=== PATIENT | male | born 1970 | race Caucasian/White ===

== ENCOUNTER 2019-12-09 02:49 | Inpatient (IN) | payer MEDICAID ==
[~2019-12-09] VITALS: Ht 154.9 cm; Wt 47.6 kg
[2019-12-09] VITALS (7 sets, daily range): BP systolic 119–164; BP diastolic 47–70
--- NOTE | 2019-12-09 02:50 | NUR ---
BIBEMS FROM SNF C/O LOW O2 SAT 94% ON 5L/NC PER EMS REPORT SINCE 2229. O2 SAT 90% ON RA DURING INITIAL ASSESSMENT; PT TO BED 8, PT ON O2 5L 94-96%. GOWNED, PENDING ER PROVIDER JULIETH
[2019-12-09] MEDS ORDERED: CEFTRIAXONE 1GM BAG (ER ONLY) 50 ML IV ONE ×2 (03:30→03:38)
[2019-12-09 03:37] LABS: BASOPHILS # (AUTO) 0.2 /CMM (0.0-0.2); BASOPHILS % (AUTO) 1.2 % (0.0-2.0); EOSINOPHILS % (AUTO) 0.8 % (0.0-6.0); HEMATOCRIT 26 % (39-51); HEMOGLOBIN 7.6 g/dL (13.5-17.5); LYMPHOCYTES # (AUTO) 2.7 /CMM (0.8-4.8); LYMPHOCYTES % (AUTO) 17.8 % (20.0-44.0); MEAN CORPUSCULAR HGB CONC 30 g/dl (31.0-36.0); MEAN CORPUSCULAR VOLUME 90 fL (80-96); MONOCYTES # (AUTO) 0.6 /CMM (0.1-1.30); MONOCYTES % (AUTO) 3.6 % (2.0-12.0); NEUTROPHILS # (AUTO) 11.8 /CMM (1.8-8.9); NEUTROPHILS % (AUTO) 76.6 % (43.0-81.0); PLATELET COUNT (AUTO) 824 /CMM (150-450); RED BLOOD CELL COUNT(AUTO) 2.85 MIL/uL (4.5-6.0); WHITE BLOOD COUNT (AUTO) 15.3 K/uL (4.3-11.0)
[2019-12-09 03:39] LABS: CALCIUM, SERUM 8.9 mg/dL (8.5-10.1); CARBON DIOXIDE 17 mmol/L (21-32); CHLORIDE 99 mmol/L (98-107); CREATININE 6.6 mg/dL (0.6-1.3); GLUCOSE 80 mg/dL (74-106); SODIUM SERUM 137 mmol/L (136-145)
[2019-12-09 03:41] LABS: POTASSIUM 7.1 mmol/L (3.5-5.1); UREA NITROGEN, BLOOD 90 mg/dL (7-18)
[2019-12-09 03:49] LABS: D-DIMER 4.12 mg/L(FEU (0.17-0.50)
[2019-12-09] MEDS ORDERED: SODIUM POLYSTYRENE SULFONATE 15 G/60 ML BOTTLE ONE (03:54)
[2019-12-09 03:55] LABS: BILIRUBIN,TOTAL 1.1 mg/dL (0.2-1.0)
[2019-12-09] MEDS ORDERED: DEXTROSE 50%-WATER 50 ML DISP.SYRIN ONE (03:55)
[2019-12-09] MEDS ORDERED: SODIUM BICARBONATE SYR 50 MEQ/50 ML DISP.SYRIN ONE ×2 (03:55→04:29)
[2019-12-09 03:56] LABS: ALKALINE PHOSPHATASE 919 U/L (46-116); ASPARTATE AMINOTRANSFERASE 19 U/L (15-37); BILIRUBIN,DIRECT 0.5 mg/dL (0.0-0.2)
[2019-12-09] MEDS ORDERED: INSULIN REGULAR, HUMAN 100 UNIT/ML 10 ML VIAL ONE (03:56)
[2019-12-09 03:57] LABS: ALANINE AMINOTRANSFERASE 22 U/L (12-78); ALBUMIN 2.7 g/dL (3.4-5.0); B-TYPE NATRIURETIC PEPTIDE 407765 PG/ML (0-125)
[2019-12-09] MEDS ORDERED: INSULIN REGULAR, HUMAN 100 UNIT/ML 10 ML VIAL IV ONE (04:00)
[2019-12-09] MEDS ORDERED: SODIUM POLYSTYRENE SULFONATE 15 G/60 ML BOTTLE PO ONE (04:00)
[2019-12-09] MEDS ORDERED: SODIUM BICARBONATE SYR 100 MEQ in IV D5W 1,000 ML IV ONE (04:00)
[2019-12-09] MEDS ORDERED: DEXTROSE 50%-WATER 50 ML DISP.SYRIN IV ONE (04:00)
--- NOTE | 2019-12-09 04:09 | NUR ---
PER DR DAIGLE; GIVE SODIUM BICARB IVP; NOT DRIP.
[2019-12-09 04:15] LABS: CREATINE KINASE, TOTAL 80 U/L (39-308); FERRITIN 3582 ng/mL (8-388)
--- NOTE | 2019-12-09 04:25 | NUR ---
Dr Stuart paged per Dr Dai.
[2019-12-09 04:28] LABS: C-REACTIVE PROTEIN 26.6 mg/dL (0.0-0.9)
[2019-12-09] MEDS ORDERED: LEVOFLOXACIN 500 MG /D5W 100ML 500 MG/100 ML PIGGYBACK IV ONE (04:30)
[2019-12-09] MEDS ORDERED: LEVOFLOXACIN 500 MG /D5W 100ML 100 ML IV ONE (04:32)
--- NOTE | 2019-12-09 05:20 | NUR ---
[facility] PAGED
[2019-12-09] MEDS ORDERED: ALBUTEROL SULFATE 8 GM HFA.AER.AD IH PRN (05:30)
[2019-12-09] MEDS ORDERED: ONDANSETRON HCL/PF 4 MG/2 ML VIAL IVP PRN (05:30)
--- NOTE | 2019-12-09 07:15 | NUR ---
report given to jennifer calloway for adriana
--- NOTE | 2019-12-09 08:10 | NUR ---
REPORT GIVEN TO ZULAY PINO FOR DENICE.
--- NOTE | 2019-12-09 09:08 | NUR ---
patient transferred to ICU via acls protocol. No distress noted. Patient had a bowel movement, pericare provided. Endorsed to Viktoria PINO.
--- NOTE | 2019-12-09 09:10 | NUR ---
CONSENT FOR HD IN CHART
[2019-12-09 09:27] LABS: BASOPHILS # (AUTO) 0.1 /CMM (0.0-0.2); BASOPHILS % (AUTO) 0.9 % (0.0-2.0); EOSINOPHILS % (AUTO) 0.8 % (0.0-6.0); HEMATOCRIT 23 % (39-51); HEMOGLOBIN 7.1 g/dL (13.5-17.5); LYMPHOCYTES # (AUTO) 1.1 /CMM (0.8-4.8); LYMPHOCYTES % (AUTO) 8.4 % (20.0-44.0); MEAN CORPUSCULAR HGB CONC 30 g/dl (31.0-36.0); MEAN CORPUSCULAR VOLUME 87 fL (80-96); MONOCYTES # (AUTO) 0.7 /CMM (0.1-1.30); MONOCYTES % (AUTO) 4.9 % (2.0-12.0); NEUTROPHILS # (AUTO) 11.6 /CMM (1.8-8.9); PLATELET COUNT (AUTO) 775 /CMM (150-450); RED BLOOD CELL COUNT(AUTO) 2.69 MIL/uL (4.5-6.0); WHITE BLOOD COUNT (AUTO) 13.6 K/uL (4.3-11.0)
[2019-12-09] MEDS ORDERED: FERR325T28 PO (09:39)
[2019-12-09] MEDS ORDERED: PANT40TA49 PO (09:39)
[2019-12-09] MEDS ORDERED: INSU100V39 SQ (09:39)
[2019-12-09] MEDS ORDERED: HYDR100T27 PO (09:39)
[2019-12-09] MEDS ORDERED: GLIP5TAB13 PO (09:39)
[2019-12-09] MEDS ORDERED: ATOR40TA PO (09:39)
[2019-12-09] MEDS ORDERED: CLON0.1T PO (09:39)
[2019-12-09] MEDS ORDERED: AMLO-213 PO (09:39)
[2019-12-09] MEDS ORDERED: LABE200T5 PO (09:39)
[2019-12-09] MEDS ORDERED: CALC500T13 PO (09:39)
[2019-12-09] MEDS ORDERED: MAGN400O6 PO (09:39)
[2019-12-09] MEDS ORDERED: ASCO500C17 PO (09:39)
[2019-12-09] MEDS ORDERED: BISA10SU11 RC (09:39)
[2019-12-09] MEDS ORDERED: ACET325T53 PO (09:39)
[2019-12-09] MEDS ORDERED: NA P133E RC (09:39)
[2019-12-09] MEDS ORDERED: VIT1TABL44 PO (09:39)
[2019-12-09] MEDS: DOXYCYCLINE HYCLATE (100 MG) 100 MG TABLET PO SCH ×2 (09:59→17:19)
[2019-12-09] MEDS: HEPARIN SODIUM, PORCINE 5000 UNITS/1 ML VIAL SQ SCH ×2 (10:00→20:47)
[2019-12-09] MEDS: CEFEPIME 1 GM in IV D5W 50 ML IV SCH (10:00)
--- NOTE | 2019-12-09 10:00 | NUR ---
DIESEL MECHANIC APPRENTICE NOTE: RECEIVED PATIENT FROM ER AT 0855. PATIENT IS AAOX3, RESPONDS APPROPRIATELY. NO SIGNS OF ACUTE DISTRESS NOTED AT THIS TIME. SATING WELL ON 4L/MIN VIA NC. #18 ON LFA, C/D/I, FLUSHES WELL, NO SIGNS OF COMPLICATIONS NOTED, RCW HD CATH C/D/I. PATIENT IS CURRENTLY GETTING DIALYZED. WOUND PICTURES TAKEN AND PLACED IN CHART. SAFETY MEASURES IMPLEMENTED, BED IN LOWEST POSITION, LOCKED, SIDE RAILS UP, CALL LIGHT WITHIN REACH. WILL CONTINUE TO MONITOR PATIENT FOR CHANGES.
[2019-12-09 10:17] LABS: CALCIUM, SERUM 8.6 mg/dL (8.5-10.1); CREATININE 6.6 mg/dL (0.6-1.3); POTASSIUM 5.5 mmol/L (3.5-5.1)
[2019-12-09 10:28] LABS: ALBUMIN 2.3 g/dL (3.4-5.0); MAGNESIUM 2.6 mg/dL (1.8-2.4); PHOSPHORUS 7.3 mg/dL (2.5-4.9); TOTAL PROTEIN, SERUM 8.1 g/dL (6.4-8.2)
--- NOTE | 2019-12-09 11:00 | NUR ---
DIALYSIS COMPLETE, 2L REMOVED
--- NOTE | 2019-12-09 12:05 | NUR ---
SENIOR CYBER SECURITY ANALYST NOTES RECEIVED PATIENT FROM ICU , REPORT GIVEN BY RENETTA RN. PATIENT ALERT ORIENTED X 4. NO ACUTE DISTRESS NOTED BREATHING UNLABORED.NO SOB NOTED, ON 4LPM VIA NASAL CANULA. SINUS RHYTHM ON MARINE RADIO INSTALLER AND SERVICER. RIGHT UPPER CHEST DIALYSIS ACCESS WITH DRESSING CLEAN DRY AND INTACT. WITH MISSING BELONGINGS SHIRT AND PANTS, PER PATIENT IT WAS PLACED IN THE TRASH , PATIENT IS AWARE AND OK WITH IT BECAUSE IT'S DIRTY. OTHER BELONGINGS ACCOUNTED FOR. NEEDS ATTENDED. [facility] CALL LIGHT WITHIN REACH. WILL CONTINUE TO MONITOR ACCORDINGLY.
--- NOTE | 2019-12-09 12:22 | NUR ---
PATIENT TRANSFERRED TO [facility] AT 11:55. REPORT GIVEN TO ALVAREZ FARIA FOR CONTINUITY OF CARE. NO ACUTE DISTRESS NOTED AT TRANSFER. PATIENT REMAINS SR IN THE 90S ON BEDSIDE MONITOR. SAFETY MEASURES IMPLEMENTED, BED IN LOWEST POSITION, LOCKED, SIDE RAILS UP, CALL LIGHT WITHIN REACH. BELONGINGS TAKEN WITH PATIENT ALONG WITH CHART.
--- NOTE | 2019-12-09 13:00 | NUR ---
TRAP SETTER NOTES BRISEIDA HOPE PRESENT ON THE FLOOR MADE AWARE MEDICATION RECONCILIATION NEEDS TO BE DONE, MD SAID SHE WILL CHECK IT MADE AWARE OF MOST RECENT LABORATORY TEST RESULTED , BUN 94 AND POTASSIUM 5.5, SAID SHE'S AWARE OF THE LABORATORY TEST RESULTS, NO NEW ORDERS MADE AT THIS TIME.
--- NOTE | 2019-12-09 18:46 | NUR ---
CONDUCTOR SYMPHONIC ORCHESTRA NOTES PATIENT IN BED ALERT ORIENTED X 4. NO ACUTE DISTRESS NOTED. BREATHING UNLABORED. NO SOB NOTED. IV ACCESS PATENT AND INTACT, NO REDNESS, NO SWELLING NOTED.NEEDS ATTENDED AND ANTICIPATED. KEPT CLEAN DRY AND COMFORTABLE. SAFETY MEASURES IN PLACE. CALL LIGHT WITHIN REACH. WILL ENDORSE TO NIGHT NURSE FOR CONTINUITY OF CARE.
[2019-12-09] MEDS ORDERED: NA PHOS,M-B/NA PHOS,DI-BA 1 EA ENEMA RC PRN (19:00)
[2019-12-09] MEDS ORDERED: BISACODYL SUPP (10 MG) 10 MG/SUPP.RECT SUPP.RECT RC PRN (19:00)
[2019-12-09] MEDS ORDERED: MAGNESIUM HYDROXIDE 30 ML UDC PO PRN (19:00)
--- NOTE | 2019-12-09 19:30 | NUR ---
PRESCHOOL HEAD TEACHER NOTES RECEIVED RESTING COMFORTABLY ON BED,A/O X3,BREATHING REGULAR,NOT IN ANY FORM DISTRESS,WITH LFA SALINE LOCK #18 INTACT AND PATENT.RIGHT CHEST WALL CATHETER FOR HD ACCESS.DRESSING INTACT AND DRY.NOTED SECOND TO FOURTH DIGIT FINGER DRY AND GANGRENOUS,NO DISCHARGES NOTED,LEFT FOOT TRANS METATARSAL AMPUTATION AND RIGHT FOOT THIRD TO FIFTH DIGIT ALSO GANGRENOUS,NO DISCHARGES NOTES.FALL PRECAUTION OBSERVED,BED ON LOWEST POSITION AND LOCKED.CALL LIGHT IN REACH,NEEDS ANTICIPATED
[2019-12-09] MEDS: hydrALAZINE HCL 25 MG TABLET PO PRN (20:48)
--- NOTE | 2019-12-09 20:48 | NUR ---
FRAMING MANAGER NOTES SR-99 ON TELE MONITOR,GURPREET 164/70, MEDICATED WITH APRESOLINE 25MG PO FOR SBP>160 ORDERED.
[2019-12-09] MEDS: ATORVASTATIN 40 MG TABLET PO SCH (21:53)
[2019-12-10] VITALS (7 sets, daily range): BP systolic 117–154; BP diastolic 52–89
--- NOTE | 2019-12-10 | NUR ---
TUBE MAKING MACHINE OPERATOR NOTES BP RECHECK AFTER GIVING APRESOLINE 25MG PO WAS 140/85.
--- NOTE | 2019-12-10 01:40 | NUR ---
QUALITY CONTROL INSPECTOR HEADING NOTES COVID TEST PCR RESULT NEGATIVE.PATIENT TRANSFERRED TO [facility],ROOM 313-2 FOR CONTINUITY OF CARE.REPORT GIVEN TO IVAN PINO IN STABLE CONDITION.
--- NOTE | 2019-12-10 01:45 | NUR ---
RN NOTES RECEIVED PT. FROM MS-2, A/OX3, SR ON TELE MONITOR , NOT IN DISTRESS, DENIES PAIN, CALL LIGHT WITHIN REACH, [id number], CONTINUE TO MONITOR
[2019-12-10 06:01] LABS: BASOPHILS # (AUTO) 0.1 /CMM (0.0-0.2); EOSINOPHILS % (AUTO) 1.9 % (0.0-6.0); HEMATOCRIT 26 % (39-51); HEMOGLOBIN 7.8 g/dL (13.5-17.5); LYMPHOCYTES # (AUTO) 2.3 /CMM (0.8-4.8); LYMPHOCYTES % (AUTO) 16.8 % (20.0-44.0); MEAN CORPUSCULAR HGB CONC 31 g/dl (31.0-36.0); MEAN CORPUSCULAR VOLUME 89 fL (80-96); MONOCYTES # (AUTO) 0.7 /CMM (0.1-1.30); MONOCYTES % (AUTO) 4.9 % (2.0-12.0); NEUTROPHILS # (AUTO) 10.3 /CMM (1.8-8.9); NEUTROPHILS % (AUTO) 75.4 % (43.0-81.0); PLATELET COUNT (AUTO) 817 /CMM (150-450); RED BLOOD CELL COUNT(AUTO) 2.89 MIL/uL (4.5-6.0); WHITE BLOOD COUNT (AUTO) 13.7 K/uL (4.3-11.0)
--- NOTE | 2019-12-10 06:46 | NUR ---
RN NOTES SLEEPING BUT AROUSABLE, NOT IN DISTRESS, NO PAIN NOTED, MORNING CARE RENDERED, CALL LIGHT WITHIN REACH, [id number], PT. NEEDS ATTENDED
[2019-12-10 07:00] LABS: ALANINE AMINOTRANSFERASE 18 U/L (12-78); ALBUMIN 2.4 g/dL (3.4-5.0); ALKALINE PHOSPHATASE 762 U/L (46-116); ASPARTATE AMINOTRANSFERASE 15 U/L (15-37); BILIRUBIN,TOTAL 0.7 mg/dL (0.2-1.0); CALCIUM, SERUM 8.8 mg/dL (8.5-10.1); CARBON DIOXIDE 25 mmol/L (21-32); CHLORIDE 99 mmol/L (98-107); CREATININE 5.6 mg/dL (0.6-1.3); GLUCOSE 177 mg/dL (74-106); MAGNESIUM 2.5 mg/dL (1.8-2.4); PHOSPHORUS 7.1 mg/dL (2.5-4.9); POTASSIUM 4.2 mmol/L (3.5-5.1); SODIUM SERUM 139 mmol/L (136-145); TOTAL PROTEIN, SERUM 8.4 g/dL (6.4-8.2); UREA NITROGEN, BLOOD 77 mg/dL (7-18)
--- NOTE | 2019-12-10 07:10 | NUR ---
FINGER BUFFS ASSEMBLER NOTES RECEIVED PATIENT IN BED ASLEEP, AROUSABLE TO VERBAL AND TACTILE STIMULI. HOB ELEVATED. ON O2 AT 4L/MIN VIA NC SILAS WELL WITHOUT SOB NOTED. ALERT AND ORIENTED X3. RIGHT UPPER CHEST WALL HD CATH INTACT. ON TELE MONITORING SR: 93. LFA SL # 18 INTACT AND PATENT. DENIES ANY C/O PAIN NOR DISCOMFORT AT THIS TIME. BED IN LOWEST POSITION, LOCKED. BED ALARM ON. CALL LIGHT WITHIN REACH. ABLE TO VERBALIZE NEEDS.
[2019-12-10 07:30] LABS: EOSINOPHILS % (MANUAL) 2 % (0-4); LYMPHOCYTES % (MANUAL) 7 % (16-48); MONOCYTES % (MANUAL) 3 % (0-11.0); NEUTROPHILS % (MANUAL) 88 (42-76)
[2019-12-10] MEDS: LABETALOL HCL (100MG) 100 MG TABLET PO SCH ×3 (10:04→17:39)
[2019-12-10] MEDS: FERROUS SULFATE (325 MG) 325 MG/TAB TABLET PO SCH (10:04)
[2019-12-10] MEDS: AMLODIPINE BESYLATE 10 MG TABLET PO SCH (10:05)
[2019-12-10] MEDS: DOXYCYCLINE HYCLATE (100 MG) 100 MG TABLET PO SCH ×3 (10:05→17:39)
[2019-12-10] MEDS: CALCIUM CARBONATE 500 MG TAB.CHEW PO SCH ×4 (10:05→17:40)
[2019-12-10] MEDS: VIT B CMPLX 3/FA/VIT C/BIOTIN 1 TAB TABLET PO SCH (10:05)
[2019-12-10] MEDS: ASCORBIC ACID 500 MG TABLET PO SCH (10:05)
[2019-12-10] MEDS: CLONIDINE HCL 0.1 MG TABLET PO SCH ×3 (10:06→17:39)
[2019-12-10] MEDS: hydrALAZINE HCL 50 MG TABLET PO SCH ×3 (10:06→17:39)
[2019-12-10] MEDS: HEPARIN SODIUM, PORCINE 5000 UNITS/1 ML VIAL SQ SCH ×2 (10:06→21:02)
[2019-12-10] MEDS: PANTOPRAZOLE 40 MG TABLET.DR PO SCH (10:06)
[2019-12-10] MEDS: CEFEPIME 1 GM in IV D5W 50 ML IV SCH (10:11)
[2019-12-10 13:03] LABS: IRON, SERUM 46 ug/dl (50-175)
[2019-12-10 13:21] LABS: TOTAL IRON BINDING CAPACITY 149 ug/dl (250-450)
--- NOTE | 2019-12-10 17:00 | NUR ---
MS RN NOTES HELD PM MEDS, ANTICIPATING HD.
--- NOTE | 2019-12-10 18:10 | NUR ---
MS RN NOTES PER DR. CORONADO, CONT SQ HEPARIN.
--- NOTE | 2019-12-10 19:14 | NUR ---
MS RN NOTES PATIENT RESTING COMFORTABLY IN BED. HOB ELEVATED. ON O2 AT 3-4L/MIN VIA NC SILAS WELL. NO S/S OF RESPIRATORY DISTRESS. RIGHT UPPER CHEST WALL HD CATH INTACT. AWAITING FOR HD TX. LFA SL # 18 INTACT AND PATENT. DENIES ANY C/O PAIN NOR DISCOMFORT AT THIS TIME. BED IN LOWEST POSITION, LOCKED. BED ALARM ON. CALL LIGHT WITHIN REACH. IN NO APPARENT DISTRESS.
--- NOTE | 2019-12-10 19:20 | NUR ---
MS RN OPENING NOTES: RECEIVED PATIENT IN BED, AWAKE. A/O X4. NO S/S OF DISTRESS NOTED. NO COMPLAIN OF PAIN. CALL LIGHT WITHIN REACH. INSTRUCTED PATIENT TO CALL FOR HELP, PATIENT VERBALIZED UNDERSTANDING, BED IN LOWEST AND LOCKED POSITION. WITH RIGHT HAND FINGERS NECROSIS AND BILATERAL FEET.
[2019-12-10] MEDS ORDERED: VANCOMYCIN 0.75 GM in IV D5W 250 ML IV ONE (19:30)
[2019-12-10] MEDS: ATORVASTATIN 40 MG TABLET PO SCH (21:01)
[2019-12-10] MEDS: CEFEPIME 2 GM in IV D5W 100 ML IV SCH (22:11)
[2019-12-11 06:36] LABS: CALCIUM, SERUM 8.3 mg/dL (8.5-10.1); CREATININE 6.6 mg/dL (0.6-1.3); MAGNESIUM 2.3 mg/dL (1.8-2.4)
[2019-12-11 06:41] LABS: BASOPHILS # (AUTO) 0.2 /CMM (0.0-0.2); BASOPHILS % (AUTO) 1.1 % (0.0-2.0); EOSINOPHILS % (AUTO) 2.1 % (0.0-6.0); HEMATOCRIT 25 % (39-51); HEMOGLOBIN 7.3 g/dL (13.5-17.5); LYMPHOCYTES # (AUTO) 2.2 /CMM (0.8-4.8); LYMPHOCYTES % (AUTO) 15.2 % (20.0-44.0); MEAN CORPUSCULAR HGB CONC 30 g/dl (31.0-36.0); MEAN CORPUSCULAR VOLUME 85 fL (80-96); MONOCYTES # (AUTO) 0.8 /CMM (0.1-1.30); MONOCYTES % (AUTO) 5.3 % (2.0-12.0); NEUTROPHILS # (AUTO) 11.2 /CMM (1.8-8.9); NEUTROPHILS % (AUTO) 76.3 % (43.0-81.0); PLATELET COUNT (AUTO) 789 /CMM (150-450); WHITE BLOOD COUNT (AUTO) 14.6 K/uL (4.3-11.0)
[2019-12-11 06:54] LABS: PHOSPHORUS 8.7 mg/dL (2.5-4.9)
--- NOTE | 2019-12-11 06:58 | NUR ---
RECEIVED A CALL FROM LAB FOR CRITICAL VALUE OF PHOSPHORUS=8.7, INFORMED BENCH SCIENTIST FABIOLA.
--- NOTE | 2019-12-11 07:00 | NUR ---
MS RN CLOSING NOTES: PATIENT IN BED, AWAKE, A/O X4. NO S/SOF DISTRESS NOTED. NO COMPLAIN OF PAIN. CALL LIGHT WITHIN REACH, BED IN LOWEST AND LOCKED POSITION. NO ORDER FROM TONIE HICKS FOR THE CRITICAL VALUE PHOSPHORUS, CHARGE NURSE NORMAN AWARE. HEMODIALYSIS WAS NOT DONE LAST NIGHT, CHARGE NURSE MADE AWARE. WILL ENDORSE TO THE NEXT SHIFT RN.
--- NOTE | 2019-12-11 07:00 | NUR ---
ENDORSED TO ALVAREZ KAN:THE PROCEDURE MAXIM AND AORTOGRAM ON FRIDAY AT 0730 AND NPO POST MN-FRIDAY, AND HANDED OVER THE COPY OF THE NOTES FROM [facility] ST[facility].
--- NOTE | 2019-12-11 07:41 | NUR ---
MS RN OPENING NOTES RECEIVED PATIENT IN BED, ASLEEP. PATIENT ON ROOM AIR; BREATHING IS EVEN AND UNLABORED; NO SOB NOTED AT THIS TIME. NO SIGNS OF PAIN SUCH FACIAL GRIMACING, MOANING OR GUARDING. LFA IV ACCESS G#18 PRESENT AND INTACT. SAFETY PRECAUTIONS IN PLACE; BED IN LOW POSITION AND LOCKED, RAILS UP X2, CALL LIGHT WITHIN REACH. WILL CONTINUE TO MONITOR PATIENT.
[2019-12-11 08:00] VITALS: BP 127/58
[2019-12-11] MEDS: CALCIUM CARBONATE 500 MG TAB.CHEW PO SCH ×3 (08:25→16:50)
[2019-12-11] MEDS: ASCORBIC ACID 500 MG TABLET PO SCH (08:26)
[2019-12-11] MEDS: VIT B CMPLX 3/FA/VIT C/BIOTIN 1 TAB TABLET PO SCH (08:26)
[2019-12-11] MEDS: hydrALAZINE HCL 50 MG TABLET PO SCH ×3 (08:26→16:50)
[2019-12-11] MEDS: PANTOPRAZOLE 40 MG TABLET.DR PO SCH (08:26)
[2019-12-11] MEDS: FERROUS SULFATE (325 MG) 325 MG/TAB TABLET PO SCH (08:26)
[2019-12-11] MEDS: CLONIDINE HCL 0.1 MG TABLET PO SCH ×2 (08:28→16:51)
[2019-12-11] MEDS: AMLODIPINE BESYLATE 10 MG TABLET PO SCH (08:29)
[2019-12-11] MEDS: LABETALOL HCL (100MG) 100 MG TABLET PO SCH ×2 (08:30→16:50)
[2019-12-11] MEDS: DOXYCYCLINE HYCLATE (100 MG) 100 MG TABLET PO SCH ×2 (08:31→16:51)
[2019-12-11] MEDS: HEPARIN SODIUM, PORCINE 5000 UNITS/1 ML VIAL SQ SCH ×2 (08:35→20:47)
--- NOTE | 2019-12-11 12:55 | NUR ---
MS RN NOTES DIALYSIS PERFORMED BY DIALYSIS NURSE. 1500 MLS OUT. VS: BP 155/77 HR: 93 AT THIS TIME PATIENT IS SITTING IN BED AND HAVING LUNCH. WILL CONTINUE TO MONITOR.
[2019-12-11] MEDS ORDERED: VANCOMYCIN 500 MG in IV D5W 100 ML IV PRN (14:00)
[2019-12-11 16:00] VITALS: BP 132/65
--- NOTE | 2019-12-11 18:44 | NUR ---
MS RN CLOSING NOTES PATIENT IN BED, ASLEEP. AWAKE DURING THE DAY. PATIENT ON ROOM AIR; BREATHING IS EVEN AND UNLABORED; NO SOB NOTED DURING THE SHIFT. NO COMPLAINS OF PAIN DURING THE DAY. LFA IV ACCESS G#18 PRESENT AND INTACT. R UPPER CHEST WALL HD CATH ACCESS; PATIENT DIALYZED TODAY WITH 1500 MLS OUTPUT. ALL NEEDS ATTENDED DURING THE DAY. SAFETY PRECAUTIONS IN PLACE; BED IN LOW POSITION AND LOCKED, RAILS UP X2, CALL LIGHT WITHIN REACH. WILL ENDORSE TO FINISH FILER NURSE.
--- NOTE | 2019-12-11 19:30 | NUR ---
MS RN OPENING NOTE RECEIVED PATIENT IN BED. A/OX3. TOLERATING ROOM AIR. RESPIRATIONS ARE EVEN AND UNLABORED. NO S/ SOB NOTED. NO C/O PAIN AT THIS TIME. IN NO APPARENT DISTRESS. IV ACCESS IN LFA #18 PATENT AND SALINE LOCKED. BED IS LOW AN D LOCKED, SEMI FOWLERS, SIDE RIALS UP X2. CALL LIGHT WITHIN REACH. WILL CONTINUE TO MONITOR.
[2019-12-11 20:00] VITALS: BP 141/65
[2019-12-11] MEDS: CEFEPIME 2 GM in IV D5W 100 ML IV SCH (20:40)
[2019-12-11] MEDS: ATORVASTATIN 40 MG TABLET PO SCH (22:30)
[2019-12-11 22:45] VITALS: BP 141/65
--- NOTE | 2019-12-12 06:30 | NUR ---
MS RN CLOSING NOTE PATIENT IS RESTING IN BED. A/OX3. REMAINS TOLERATING ROOM AIR. NO RESP DISTRESS NOTED. NO C/O PAIN T/O SHIFT. NO DISTRESS. IV ACCESS MAINTAINED IN LFA #18 PATENT AND SALINE LOCKED. BED REMAINS LOW AND LOCKED, SEMI FOWLERS, SIDE RIALS UP X2. CALL LIGHT WITHIN REACH. WILL ENDORSE TO NEXT SHIFT.
[2019-12-12 07:35] LABS: BASOPHILS # (AUTO) 0.2 /CMM (0.0-0.2); BASOPHILS % (AUTO) 1.2 % (0.0-2.0); EOSINOPHILS % (AUTO) 2.3 % (0.0-6.0); HEMATOCRIT 26 % (39-51); HEMOGLOBIN 7.7 g/dL (13.5-17.5); LYMPHOCYTES # (AUTO) 2.2 /CMM (0.8-4.8); LYMPHOCYTES % (AUTO) 17.3 % (20.0-44.0); MEAN CORPUSCULAR HGB CONC 30 g/dl (31.0-36.0); MEAN CORPUSCULAR VOLUME 86 fL (80-96); MONOCYTES # (AUTO) 0.8 /CMM (0.1-1.30); MONOCYTES % (AUTO) 6.3 % (2.0-12.0); NEUTROPHILS # (AUTO) 9.3 /CMM (1.8-8.9); NEUTROPHILS % (AUTO) 72.9 % (43.0-81.0); RED BLOOD CELL COUNT(AUTO) 3.02 MIL/uL (4.5-6.0); WHITE BLOOD COUNT (AUTO) 12.7 K/uL (4.3-11.0)
[2019-12-12 07:43] LABS: PLATELET COUNT (AUTO) 770 /CMM (150-450)
--- NOTE | 2019-12-12 07:50 | NUR ---
MS RN OPENING NOTE PATIENT IN BED RESTING COMFORTABLY. PATIENT IN NO ACUTE DISTRESS. NO SOB NOTED. PATIENT BREATHING IS EVEN AND UNLABORED. PATIENT BED ALARM IS ON. HOB IS ELEVATED. PATIENT SAFETY PRECAUTIONS IN PLACE. PATIENT BED IS LOCKED AND IN LOWEST POSITION. CALL LIGHT WITHIN REACH. WILL CONTINUE TO MONITOR.
[2019-12-12 08:09] LABS: MAGNESIUM 2.3 mg/dL (1.8-2.4); POTASSIUM 4.3 mmol/L (3.5-5.1)
[2019-12-12] MEDS: HEPARIN SODIUM, PORCINE 5000 UNITS/1 ML VIAL SQ SCH ×2 (09:15→20:29)
[2019-12-12] MEDS: CALCIUM CARBONATE 500 MG TAB.CHEW PO SCH ×3 (09:19→16:56)
[2019-12-12] MEDS: LABETALOL HCL (100MG) 100 MG TABLET PO SCH ×2 (09:19→16:53)
[2019-12-12] MEDS: VIT B CMPLX 3/FA/VIT C/BIOTIN 1 TAB TABLET PO SCH (09:20)
[2019-12-12] MEDS: FERROUS SULFATE (325 MG) 325 MG/TAB TABLET PO SCH (09:20)
[2019-12-12] MEDS: DOXYCYCLINE HYCLATE (100 MG) 100 MG TABLET PO SCH ×2 (09:20→16:56)
[2019-12-12] MEDS: PANTOPRAZOLE 40 MG TABLET.DR PO SCH (09:20)
[2019-12-12] MEDS: AMLODIPINE BESYLATE 10 MG TABLET PO SCH (09:20)
[2019-12-12] MEDS: hydrALAZINE HCL 50 MG TABLET PO SCH ×3 (09:20→16:52)
[2019-12-12] MEDS: CLONIDINE HCL 0.1 MG TABLET PO SCH ×2 (09:20→16:53)
[2019-12-12] MEDS: ASCORBIC ACID 500 MG TABLET PO SCH (09:20)
--- NOTE | 2019-12-12 10:02 | NUR ---
MS RN NOTE PER CHARGE NURSE ENMA, SHE SPOKE WITH DR. NAVARRO AND PATIENT IS TO REMAIN NPO AFTER MIDNIGHT. OKAY TO EAT DINNER TONIGHT. SCHEDULING CLERK HANNAH AWARE OF MAXIM PROCEDURE TOMORROW AM.
--- NOTE | 2019-12-12 11:53 | NUR ---
MS RN NOTE SPOKE WITH DR. DEGROOT ABOUT PATIENTS HISTORY OF DIABETES. ORDER FOR MILD SLIDING SCALE SET ACHS.
[2019-12-12] MEDS ORDERED: DEXTROSE 50%-WATER 50 ML DISP.SYRIN IV PRN (12:00)
[2019-12-12] MEDS: BLOOD SUGAR DIAGNOSTIC 1 EACH STRIP IN SCH ×3 (12:10→21:16)
[2019-12-12] MEDS: INSULIN REGULAR, HUMAN 100 UNIT/ML 3 ML VIAL SQ PRN ×3 (12:22→21:15)
--- NOTE | 2019-12-12 18:34 | NUR ---
MS RN CLOSING NOTE PATIENT IN BED RESTING COMFORTABLY. PATIENT IN NO ACUTE DISTRESS. NO SOB NOTED. PATIENT BREATHING IS EVEN AND UNLABORED. EXPLAINED ALL DUE MEDS. PATIENT STATES NO PAIN AT THIS TIME. PATIENT KEPT CLEAN, DRY, AND COMFORTABLE THROUGHOUT SHIFT. NEEDS AND CONCERNS ADDRESSED. EDUCATED TO PATIENT TO REMAIN NPO PAST MIDNIGHT FOR PROCEDURE TOMORROW AM. PATIENT VERBALIZED UNDERSTANDING. PATIENT BED ALARM IS ON. PATIENT SAFETY PRECAUTIONS IN PLACE. PATIENT BED IS LOCKED AND IN LOWEST POSITION. CALL LIGHT WITHIN REACH. WILL ENDORSE CARE TO PM SHIFT FOR DENICE.
--- NOTE | 2019-12-12 19:30 | NUR ---
FABIOLA SPEAR FISHER ASKED WHETHER TO HOLD SCHEDULED HEPARIN DOSE TONIGHT PT SCHEDULED FOR MAXIM IN THE AM. INFORMED TO HOLD TONIGHTS HEPARIN.
[2019-12-12 20:00] VITALS: BP 127/58
[2019-12-12] MEDS: ATORVASTATIN 40 MG TABLET PO SCH (21:16)
[2019-12-12] MEDS: CEFEPIME 2 GM in IV D5W 100 ML IV SCH (21:16)
[2019-12-13] VITALS (18 sets, daily range): BP systolic 113–136; BP diastolic 49–76
[2019-12-13 04:06] LABS: BASOPHILS # (AUTO) 0.2 /CMM (0.0-0.2); BASOPHILS % (AUTO) 1.5 % (0.0-2.0); EOSINOPHILS % (AUTO) 2.5 % (0.0-6.0); HEMATOCRIT 24 % (39-51); HEMOGLOBIN 7.2 g/dL (13.5-17.5); LYMPHOCYTES # (AUTO) 2.2 /CMM (0.8-4.8); MEAN CORPUSCULAR HGB CONC 30 g/dl (31.0-36.0); MEAN CORPUSCULAR VOLUME 84 fL (80-96); MONOCYTES # (AUTO) 0.8 /CMM (0.1-1.30); MONOCYTES % (AUTO) 5.2 % (2.0-12.0); NEUTROPHILS # (AUTO) 12.2 /CMM (1.8-8.9); NEUTROPHILS % (AUTO) 76.8 % (43.0-81.0); PLATELET COUNT (AUTO) 752 /CMM (150-450); RED BLOOD CELL COUNT(AUTO) 2.84 MIL/uL (4.5-6.0); WHITE BLOOD COUNT (AUTO) 15.9 K/uL (4.3-11.0)
[2019-12-13 04:13] LABS: CALCIUM, SERUM 8.8 mg/dL (8.5-10.1); CREATININE 5.8 mg/dL (0.6-1.3); POTASSIUM 5.1 mmol/L (3.5-5.1)
[2019-12-13] MEDS ORDERED: IODIXANOL 150 ML IV ONE ×2 (06:33→08:34)
--- NOTE | 2019-12-13 06:45 | NUR ---
REPORT GIVEN TO RISK CONTROL PRODUCT LIABILITY DIRECTOR NURSE. PREOP CHECKLIST COMPLETED.
[2019-12-13] MEDS ORDERED: LIDOCAINE HCL/PF 1% 30 ML SDV ONE ×2 (06:46→07:50)
--- NOTE | 2019-12-13 07:05 | NUR ---
PT ESCORTED OFF UNIT WITH MANAGER OF CUSTOMER BILLING TEAM FOR PROCEDURE.
[2019-12-13] MEDS ORDERED: ANESTHESIA TRAY IN PYXIS 1 EA TRAY MC ONE (07:07)
[2019-12-13] MEDS ORDERED: IV SET PRIMARY PUMP SET 1 EA INFUS.SET MC ONE (07:16)
[2019-12-13] MEDS ORDERED: IV NS 0.9% 1,000 ML ONE (07:16)
[2019-12-13] MEDS ORDERED: KETAMINE HCL (500MG/10ML) 50 MG/ML VIAL ONE (07:22)
[2019-12-13] MEDS: INSULIN REGULAR, HUMAN 100 UNIT/ML 3 ML VIAL SQ PRN ×3 (07:32→17:56)
[2019-12-13] MEDS: BLOOD SUGAR DIAGNOSTIC 1 EACH STRIP IN SCH ×4 (07:32→21:18)
--- NOTE | 2019-12-13 07:51 | NUR ---
MS/RN OPENING NOTE PATIENT WAS BEING TRANSFERRED TO SERVICE DESK SPECIALIST WHILE RECEIVING REPORT.
[2019-12-13] MEDS ORDERED: HEPARIN SODIUM, PORCINE 1,000 UNIT/ML VIAL ONE ×3 (07:54→09:08)
[2019-12-13] MEDS ORDERED: IODIXANOL 320MG/ML 100 ML IV ONE ×2 (07:57→09:11)
[2019-12-13] MEDS: HEPARIN SODIUM, PORCINE 5000 UNITS/1 ML VIAL SQ SCH ×2 (09:00→21:04)
[2019-12-13] MEDS: CLONIDINE HCL 0.1 MG TABLET PO SCH ×2 (09:00→17:00)
[2019-12-13] MEDS: AMLODIPINE BESYLATE 10 MG TABLET PO SCH ×2 (09:00→11:33)
[2019-12-13] MEDS: hydrALAZINE HCL 50 MG TABLET PO SCH ×3 (09:00→17:00)
[2019-12-13] MEDS: LABETALOL HCL (100MG) 100 MG TABLET PO SCH ×2 (09:00→17:00)
[2019-12-13] MEDS ORDERED: IODIXANOL 320MG/ML 50 ML IV ONE (09:09)
[2019-12-13] MEDS ORDERED: CLOPIDOGREL BISULFATE 300 MG TABLET ONE (09:37)
--- NOTE | 2019-12-13 10:32 | NUR ---
ICU/RN: RECEIVED PT FROM MANAGER SALES SUPPORT. PT ALERT, AWAKE. RECEIVED REPORT FROM CATRACHITO RN. PT VSS, SINUS ON TELE. ON 2LITERS NASAL CANULA, NO ACUTE DISTRESS NOTED. LEFT FEMORAL SHEATH IN PLACE, MINIMAL BLEEDING NOTED, WILL CONTINUE TO MONITOR. STAT PTT ORDERED TO DETERMINE WHEN SHEATH WILL BE PULLED. PT INSTRUCTED TO STAY FLAT. WILL CONTINUE TO MONITOR CLOSELY.
[2019-12-13] MEDS ORDERED: CLOPIDOGREL BISULFATE 75 MG TABLET PO ONE (11:00)
--- NOTE | 2019-12-13 11:00 | NUR ---
ICU/RN: Reggie MARX RN ENDORSES BEDSIDE REPORT. ALL BELONGINGS BROUGHT TO ROOM 260. WILL CONTINUE CARE.
--- NOTE | 2019-12-13 11:10 | NUR ---
MS/ROLL THREADER OPERATOR PATIENT TRANSFERRED TO ICU, ROOM 260. REPORT GIVEN TO RN IN ICU, ALL PERSONAL BELONGINGS TAKEN TO UNIT.
[2019-12-13] MEDS: FERROUS SULFATE (325 MG) 325 MG/TAB TABLET PO SCH (11:32)
[2019-12-13] MEDS: PANTOPRAZOLE 40 MG TABLET.DR PO SCH (11:32)
[2019-12-13] MEDS: CALCIUM CARBONATE 500 MG TAB.CHEW PO SCH ×3 (11:32→17:35)
[2019-12-13] MEDS: ASCORBIC ACID 500 MG TABLET PO SCH (11:32)
[2019-12-13] MEDS: DOXYCYCLINE HYCLATE (100 MG) 100 MG TABLET PO SCH (11:33)
[2019-12-13] MEDS: VIT B CMPLX 3/FA/VIT C/BIOTIN 1 TAB TABLET PO SCH (11:34)
--- NOTE | 2019-12-13 12:00 | NUR ---
ICU/RN: BLEEDING NOTED AT SHEATH SITE. ADMINISTRATIVE NURSING SUPERVISOR TEAM CALLED, ASSESSED SITE AND PRESSURE APPLIED. ALSO INFORMED . PTT PENDING.
--- NOTE | 2019-12-13 12:30 | NUR ---
ICU/RN: HD STARTED, VSS, WILL CONTINUE TO MONITOR AND ASSESS
--- NOTE | 2019-12-13 14:17 | NUR ---
ICU/RN: BELT CLEANER TEAM AT BEDSIDE. ACT DONE, 158. REPEAT PTT PENDING. SHEATH PULLED OUT AT 1340, PRESSURE APPLIED. TEGADERM DRESSING APPLIED, WILL MONITOR FOR BLEEDING. HD STILL ONGOING.
[2019-12-13] MEDS: hydrALAZINE HCL 25 MG TABLET PO PRN (15:18)
--- NOTE | 2019-12-13 17:57 | NUR ---
NON ADMINISTERED INSULIN. BS 131. PT DOES NOT WANT TO EAT DINNER. WILL MONITOR
--- NOTE | 2019-12-13 17:58 | NUR ---
ICU/RN: PT REFUSED BP MEDICATIONS. CHARTED IN EMAR. BP STABLE 119/62
--- NOTE | 2019-12-13 18:03 | NUR ---
POST STAR NAYLOR HELD. LEVEL 21. PHARMACY AWARE.
--- NOTE | 2019-12-13 18:42 | NUR ---
ICU/RN INITIAL NOTES,AM REPORT WILL BE ENDORSED TO NIGHT NURSE FOR DENICE. PT ALERT, AWAKE, FOLLOWS COMMANDS. ON ROOM AIR, NO ACUTE DISTRESS NOTED. PT S/P CARDIAC CATH. SHEATH REMOVED, SITE CLEAN/DRY/NO SIGNS OF BLEEDING NOTED. PT ANURIC, HD DONE TODAY, 1 LITER OUT. ALL NEEDS ATTENDED TO, SAFETY MEASURES TAKEN, BED IN LOW POSITION, SIDE RAILS UP, CALL LIGHT WITHIN REACH.
[2019-12-13] MEDS: LEVOFLOXACIN (250MG) 250 MG TABLET PO SCH (21:03)
[2019-12-13] MEDS: ATORVASTATIN 40 MG TABLET PO SCH (21:03)
--- NOTE | 2019-12-13 21:17 | NUR ---
agricultural produce commission agent. all meds scanned
[2019-12-14] VITALS (20 sets, daily range): BP systolic 108–166; BP diastolic 45–72
--- NOTE | 2019-12-14 | NUR ---
ASSISTANT DISTRICT ATTORNEY. NO CHANGES. WILL CONTINUE TO MONITOR
--- NOTE | 2019-12-14 03:45 | NUR ---
curriculum and instruction director. am care. oral care, bed bath given. linen changed. remaining same vents etting tolerated well. sat 98%, no acute distress noted, bookkeeping machine operator showing nsr, hob elevated, will continue to monitor
[2019-12-14 04:45] LABS: BASOPHILS # (AUTO) 0.1 /CMM (0.0-0.2); BASOPHILS % (AUTO) 0.8 % (0.0-2.0); EOSINOPHILS % (AUTO) 1.1 % (0.0-6.0); HEMATOCRIT 23 % (39-51); LYMPHOCYTES # (AUTO) 1.6 /CMM (0.8-4.8); LYMPHOCYTES % (AUTO) 11.8 % (20.0-44.0); MEAN CORPUSCULAR HGB CONC 30 g/dl (31.0-36.0); MEAN CORPUSCULAR VOLUME 88 fL (80-96); MONOCYTES # (AUTO) 0.6 /CMM (0.1-1.30); MONOCYTES % (AUTO) 4.8 % (2.0-12.0); NEUTROPHILS % (AUTO) 81.5 % (43.0-81.0); PLATELET COUNT (AUTO) 704 /CMM (150-450); RED BLOOD CELL COUNT(AUTO) 2.59 MIL/uL (4.5-6.0); WHITE BLOOD COUNT (AUTO) 13.5 K/uL (4.3-11.0)
[2019-12-14 04:56] LABS: HEMOGLOBIN 6.9 g/dL (13.5-17.5)
[2019-12-14 05:07] LABS: CALCIUM, SERUM 9.3 mg/dL (8.5-10.1); CREATININE 4.6 mg/dL (0.6-1.3); MAGNESIUM 2.2 mg/dL (1.8-2.4); PHOSPHORUS 5.9 mg/dL (2.5-4.9); POTASSIUM 4.9 mmol/L (3.5-5.1)
[2019-12-14 05:33] LABS: LYMPHOCYTES % (MANUAL) 11 % (16-48); MONOCYTES % (MANUAL) 2 % (0-11.0); NEUTROPHILS % (MANUAL) 87 (42-76)
--- NOTE | 2019-12-14 07:00 | NUR ---
h&h 6.11/02. notified md jimenez
[2019-12-14] MEDS: BLOOD SUGAR DIAGNOSTIC 1 EACH STRIP IN SCH ×4 (07:44→22:23)
--- NOTE | 2019-12-14 08:14 | NUR ---
WOUND CARE CONSULT: PT PRESENTS WITH SACRAL SCAR, DISCOLORATION OF FINGERS AND DRY NECROTIC TOES AND LEFT FOOT, PRESENT ON ADMISSION. DEFER TO PMD FOR POSSIBLE VASCULAR/DPM CONSULTS. PT IS INDEPENDENT WITH BED MOBILITY. WILL SEE PRN. MATA IN AGREEMENT WITH PLAN OF CARE. CURRENT TALI SCORE IS 18. Addendum: 12/14/19 at 0816 by DARRION VALDEZ WNDNU Amended: Links added.
[2019-12-14] MEDS: FERROUS SULFATE (325 MG) 325 MG/TAB TABLET PO SCH (08:28)
[2019-12-14] MEDS: CALCIUM CARBONATE 500 MG TAB.CHEW PO SCH ×4 (08:28→16:44)
[2019-12-14] MEDS: CLONIDINE HCL 0.1 MG TABLET PO SCH ×3 (08:29→16:43)
[2019-12-14] MEDS: hydrALAZINE HCL 50 MG TABLET PO SCH ×4 (08:29→16:42)
[2019-12-14] MEDS: PANTOPRAZOLE 40 MG TABLET.DR PO SCH (08:30)
[2019-12-14] MEDS: VIT B CMPLX 3/FA/VIT C/BIOTIN 1 TAB TABLET PO SCH (08:30)
[2019-12-14] MEDS: ASCORBIC ACID 500 MG TABLET PO SCH (08:30)
[2019-12-14] MEDS: LABETALOL HCL (100MG) 100 MG TABLET PO SCH ×3 (08:30→16:43)
[2019-12-14] MEDS: AMLODIPINE BESYLATE 10 MG TABLET PO SCH (08:31)
[2019-12-14] MEDS: HEPARIN SODIUM, PORCINE 5000 UNITS/1 ML VIAL SQ SCH ×3 (08:31→21:16)
--- NOTE | 2019-12-14 08:32 | NUR ---
RN NOTES PT HMG IS 6.9 VERY CRITICAL HELD HEPARIN TOLD CHARGE NURSE OLENA AND INFORMED DOCTOR.
--- NOTE | 2019-12-14 08:35 | NUR ---
RN NOTES DOCTOR LOUIS SAID OK TO HOLD HEPARIN
--- NOTE | 2019-12-14 08:50 | NUR ---
RN NOTES OK TO TRANSFER TO TELE . OLENA CHARGE NURSE INFORMED WAITING FOR THE BED. BLOOD TRANSFUSION WILL BE DONE THERE OK WITH CHARGE NURSE
--- NOTE | 2019-12-14 09:25 | NUR ---
RN NOTES PT IN BED ALERT, AWAKE, AND FOLLOWS COMMANDS. ON NC ON 2L, NO ACUTE DISTRESS NOTED. PT IS ANURIC. LFA 20 G SALINE LOCK IS INTACT, NO S/S INFECTION OR INFILTRATION NOTED. RIGHT UPPER CHEST WALL HD IS NOTED. WOUND CONSULT ORDERED.SAFETY MEASUREMENTS ARE IMPLEMENTED PER HOSPITAL POLICY. BED IS IN LOW POSITION, SIDE RAILS UPX2. CALL LIGHT WITHIN REACH. WILL CONTINUE TO MONITOR
--- NOTE | 2019-12-14 11:00 | NUR ---
RN NOTES GAVE REPORT TO LOCO FOR TRANSFERRING PT TO 117 BED 1
--- NOTE | 2019-12-14 12:00 | NUR ---
RN NOTES LAB CALLED STATING BLOOD IS READY
[2019-12-14] MEDS: INSULIN REGULAR, HUMAN 100 UNIT/ML 3 ML VIAL SQ PRN ×2 (12:47→22:23)
--- NOTE | 2019-12-14 13:05 | NUR ---
RN NOTE TRANSFERRED PATIENT TO [facility] BED 1 AND GAVE REPORT TO LOCO . TRANSFERRED PT WITH ACLS PROTOCOL WITH TELE MONITOR AND OXYGEN NO S/S OF DISTRESS, ON 2L NC, O2 SAT 98%, NO SOB, A/O X4,
--- NOTE | 2019-12-14 13:06 | NUR ---
RN INITIAL NOTE PATIENT RECEIVED FROM ICU IN BED, NO S/S OF DISTRESS, ON 2L NC, O2 SAT 98%, NO SOB, A/O X4, ASSESSED HEAD TO TOE, R UPPER CHEST WALL HD CATH, L FOREARM IV PATENT DRY INTACT, CARDIAC DIET, TELE MONITOR APPLIED, BED IN LOWEST LOCKED POSITION, SAFETY MEASURES IMPLEMENTED, CALL LIGHT WITHIN REACH. WILL CONTINUE TO MONITOR.
--- NOTE | 2019-12-14 13:48 | NUR ---
EXTENSION WORKER NOTE STARTED ON BLOOD TRANSFUSION ORDERED ,NO ADVERSE REACTION NOTED ,WILL CONT TO MONITOR
[2019-12-14] MEDS ORDERED: CLOPIDOGREL BISULFATE 75 MG TABLET PO ONE (15:30)
--- NOTE | 2019-12-14 15:30 | NUR ---
RN NOTE CALLED DR INFANTE CHAIN MAKER MACHINE, STATED PATIENT WILL MOST LIKELY HAVE SURGERY FOR STENT PLACEMENT TOMORROW MORNING, SAID TO GIVE ORDER PLAVIX 300 MG, AND PLAVIX 75 DAILY, WAS NOTIFIED THAT THE PATIENT WAS ALREADY ON HEPARIN.
--- NOTE | 2019-12-14 16:00 | NUR ---
RN NOTE PATIENT REFUSED PLAVIX ORAL 300MG, NOTIFIED DR INFANTE, SAID IT WAS OK TO GIVE ZOFRAN AND CALL IF PATIENT STILL DOES NOT WANT TO TAKE PLAVIX AFTER.
--- NOTE | 2019-12-14 16:15 | NUR ---
RN NOTE PATIENT REFUSED ZOFRAN AND AGREED TO TAKE THE PLAVIX. REFUSED APRESOLINE, CATAPRES, TRANDATE, AND AND TUMS. EXPLAINED BENEFITS AND REASON FOR MEDICATIONS 3X BUT STILL REFUSED.
--- NOTE | 2019-12-14 16:44 | NUR ---
PETROLEUM SUPPLY SPECIALIST NOTE BLOOD TRANSFUSION COMPLETED NO ADVERSE REACTION NOTED
--- NOTE | 2019-12-14 18:25 | NUR ---
RN CLOSING NOTE PATIENT IN BED, 2L NC, O2 SAT 98%, RESP FAILURE, PNA, ANEURIC, HG 6.9, GAVE 1 UNIT PRBC, A&O X4, ON TELE MONITOR, NPO ORDERED TO START AT MIDNIGHT EXCEPT STILL NEEDS PLAVIX, STENT PLACEMENT TOMORROW MORNING, NAUSEA SO REFUSED BP MEDS, SO S/S OF DISTRESS, NO SOB, L FOREARM HEP LOCK, R U CHEST WALL HD CATH, BED IN LOWEST LOCKED POSITION, SAFETY MEASURES IMPLEMENTED, CALL LIGHT WITHIN REACH, WILL ENDORSE TO JACKSPOOLER NURSE.
--- NOTE | 2019-12-14 19:23 | NUR ---
RN NOTE ENDORSED TO REMOTE SENSING SPECIALIST NURSE TO FOLLOW UP WITH [facility], IF NEED TO HOLD PLAVIX BEFORE STENT PLACEMENT IN THE AM.
--- NOTE | 2019-12-14 19:30 | NUR ---
RN OPENING NOTES, PATIENT IN BED, A&O X4 ABLE TO VERBALIZED NEEDS AND CONCERNS, BREATHING EVEN AND UNLABORED, NO SOB/ACUTE RESPIRATORY DISTRESS NOTED, ON 2L NC, O2 SAT LEVEL >96%, NSR ON TELE MONITOR, S/P 1 UNIT PRBC TODAY, WILL BE NPO AFTER MIDNIGHT FOR POSSIBLE STENT PLACEMENT TOMORROW, PATIENT AWARE AND VERBALIZED UNDERSTANDING, LEFT FOREARM S/L, PATENT AND INTACT, RCW HD CATH IN PLACED, DRESSING INTACT, NO BLEEDING OR ABNORMALITY NOTED, BED LOCKED AND LOWEST POSITION, ALL SAFETY MEASURES IMPLEMENTED, CALL LIGHT WITHIN REACH, WILL CONTINUE TO MONITOR CLOSELY.
[2019-12-14] MEDS: ATORVASTATIN 40 MG TABLET PO SCH (21:14)
--- NOTE | 2019-12-14 22:45 | NUR ---
RN NOTES, PER DR ROJAS CONTINUE TO ADMINISTRATION OF HEPARIN ADMINISTRATION, BUT PATIENT REFUSED HEPARIN AND ALSO HG WAS LOW THIS MORNING, S/P ONE UNIT OF PRBC TODAY, ALSO NOTED PATIENT SCRATCHING RIGHT FOOT PLANTAR AND SLIGHTLY BLEEDING FROM SITE PICTURE TAKEN AND PLACED ON CHART , WILL ORDER WOUND CONSUL, EDUCATION PROVIDED TO PATIENT ABOUT AVOID SCRATCHING THE FOOT AND INFECTION RELATED, AND HE VERBALIZED UNDERSTANDING.
[2019-12-15] VITALS: BP 147/59
[2019-12-15 04:00] VITALS: BP 149/61
[2019-12-15 06:04] LABS: BASOPHILS # (AUTO) 0.1 /CMM (0.0-0.2); BASOPHILS % (AUTO) 0.8 % (0.0-2.0); EOSINOPHILS % (AUTO) 1.2 % (0.0-6.0); HEMATOCRIT 25 % (39-51); HEMOGLOBIN 7.6 g/dL (13.5-17.5); LYMPHOCYTES # (AUTO) 1.6 /CMM (0.8-4.8); LYMPHOCYTES % (AUTO) 10.4 % (20.0-44.0); MEAN CORPUSCULAR HGB CONC 30 g/dl (31.0-36.0); MEAN CORPUSCULAR VOLUME 90 fL (80-96); MONOCYTES # (AUTO) 0.9 /CMM (0.1-1.30); MONOCYTES % (AUTO) 5.5 % (2.0-12.0); NEUTROPHILS # (AUTO) 12.8 /CMM (1.8-8.9); NEUTROPHILS % (AUTO) 82.1 % (43.0-81.0); PLATELET COUNT (AUTO) 640 /CMM (150-450); RED BLOOD CELL COUNT(AUTO) 2.77 MIL/uL (4.5-6.0); WHITE BLOOD COUNT (AUTO) 15.6 K/uL (4.3-11.0)
[2019-12-15 06:13] LABS: CALCIUM, SERUM 9.4 mg/dL (8.5-10.1); CREATININE 5.6 mg/dL (0.6-1.3); MAGNESIUM 2.4 mg/dL (1.8-2.4); PHOSPHORUS 7.1 mg/dL (2.5-4.9); POTASSIUM 5.1 mmol/L (3.5-5.1)
--- NOTE | 2019-12-15 06:50 | NUR ---
RN OPENING NOTES, PATIENT IN BED, ASLEEP AT THIS TIME, AROUSES TO VERBAL STIMULI, BREATHING EVEN AND UNLABORED, NO SOB/ACUTE RESPIRATORY DISTRESS NOTED, ON 4L NC O2 AT THIS TIME, WITH O2 SAT LEVEL 94%, NSR ON TELE MONITOR, WITH HR AT 80S AT THIS TIME, NPO SINCE MIDNIGHT FOR POSSIBLE STENT PLACEMENT TODAY, PATIENT C/O SHORTEST OF BREATH THIS MORNING, AND INCREASED O2 ADMINISTRATION TO 4LPM PATIENT STATED FEELING BETTER, OTHERWISE NO SIGNIFICANT CHANGE IN CONDITION, BED LOCKED AND LOWEST POSITION, PATIENT ANURIC, NO URINE OUTPUT NOTED, ALL SAFETY MEASURES IMPLEMENTED, CALL LIGHT WITHIN REACH, WILL ENDORSE CONTINUITY OF CARE TO ONCOMING NURSE.
[2019-12-15] MEDS ORDERED: IODIXANOL 150 ML IV ONE (07:20)
[2019-12-15] MEDS: BLOOD SUGAR DIAGNOSTIC 1 EACH STRIP IN SCH ×4 (07:30→21:26)
--- NOTE | 2019-12-15 07:30 | NUR ---
RN OPENING NOTE RECEIVED PATIENT IN BED, SO S/S OF DISTRESS, SOME SOB RELIEVED WITH O2 NC 2L, O2 SAT 98%, A/O X4, ANURIC, DIAPER, GANGRENE ON R FOOT, L FOOT AMPUTATION, R HAND GANGRENE, NPO, BED IN LOWEST LOCKED POSITION, SAFETY MEASURES IN PLACE, CALL LIGHT WITHIN REACH. WILL CONTINUE TO MONITOR.
[2019-12-15 08:00] VITALS: BP 150/46
[2019-12-15] MEDS: CLONIDINE HCL 0.1 MG TABLET PO SCH ×2 (09:00→18:49)
[2019-12-15] MEDS: PANTOPRAZOLE 40 MG TABLET.DR PO SCH (09:00)
[2019-12-15] MEDS: VIT B CMPLX 3/FA/VIT C/BIOTIN 1 TAB TABLET PO SCH (09:00)
[2019-12-15] MEDS: HEPARIN SODIUM, PORCINE 5000 UNITS/1 ML VIAL SQ SCH ×2 (09:00→20:19)
[2019-12-15] MEDS: hydrALAZINE HCL 50 MG TABLET PO SCH ×3 (09:00→17:00)
[2019-12-15] MEDS: LABETALOL HCL (100MG) 100 MG TABLET PO SCH ×2 (09:00→17:54)
[2019-12-15] MEDS: AMLODIPINE BESYLATE 10 MG TABLET PO SCH (09:00)
[2019-12-15] MEDS: FERROUS SULFATE (325 MG) 325 MG/TAB TABLET PO SCH (09:00)
[2019-12-15] MEDS: CLOPIDOGREL BISULFATE 75 MG TABLET PO SCH (09:00)
[2019-12-15] MEDS: CALCIUM CARBONATE 500 MG TAB.CHEW PO SCH ×3 (09:00→17:49)
[2019-12-15] MEDS: ASCORBIC ACID 500 MG TABLET PO SCH (09:00)
--- NOTE | 2019-12-15 10:18 | NUR ---
RN NOTE EXPLAINED 3X THE BENEFIT AND REASONING FOR ALL MORNING MEDICATIONS BUT PATIENT STILL REFUSED. MD AWARE, NO NEW ORDER.
--- NOTE | 2019-12-15 11:30 | NUR ---
PATIENT'S PROCEDURE WAS CANCELLED AND WAS RESCHEDULED FOR TOMORROW 729. INFORMED PATIENT AND MD. CANCELLED NPO STATUS AND ORDERED DIET FOR LUNCH.
[2019-12-15] MEDS ORDERED: VANCOMYCIN IV ONE (13:00)
[2019-12-15] MEDS ORDERED: [UNRECOGNIZED DRUG - OTHER] IV ONE (13:00)
--- NOTE | 2019-12-15 13:00 | NUR ---
DIALYSIS DONE 1 L OUT TOLERATED WELL
[2019-12-15 16:00] VITALS: BP 137/74
--- NOTE | 2019-12-15 18:00 | NUR ---
PATIENT VOMITED ONE TIME NON PROJECTILE. PATIENT REFUSED ZOFRAN.
--- NOTE | 2019-12-15 19:15 | NUR ---
RECEIVED PT ON BED AWAKE A/O X4 ON O2 4L SPO2 94% HAVE LFA# 20 PATENT AND FLUSHED WITH RCW HD CATH, SAFETY MEASURE MAINTAINED BED ON LOWEST POSITION AND LOCKED SIDE RAILS UP X2 CALL LIGHT WITHIN REACH WILL CONT TO MONITOR
--- NOTE | 2019-12-15 19:18 | NUR ---
RN CLOSING NOTE PATIENT RESTING IN BED, NO S/S OF DISTRESS, ON 4L NC, O2 SAT 94%, HEMODIALYSIS TODAY, 1L OUT, SO RESP DISTRESS, NO PAIN, GANGRENE BILAT FEET AND R HAND, IV L FA PATENT FLUSHES WELL, NPO AFTER MIDNIGHT, SURGERY POSTPONED TO 0730 TOMORROW, A/O X4, BED IN LOWEST LOCKED POSITION, SAFETY MEASURES IN PLACE, CALL LIGHT WITHIN REACH. WILL ENDORSE TO PRINTER FLOOR COVERING ASSISTANT.
[2019-12-15 20:00] VITALS: BP 114/65
[2019-12-15] MEDS: LEVOFLOXACIN (250MG) 250 MG TABLET PO SCH (20:17)
--- NOTE | 2019-12-15 20:19 | NUR ---
HERPARIN NOT GIVEN PT WILL HAVE A PROCEDURE HILARY HUBER @ 8003 CHARGE NURSE AWARE
[2019-12-15] MEDS: ATORVASTATIN 40 MG TABLET PO SCH (21:26)
[2019-12-15] MEDS: INSULIN REGULAR, HUMAN 100 UNIT/ML 3 ML VIAL SQ PRN (21:52)
[2019-12-16] VITALS (61 sets, daily range): BP systolic 123–151; BP diastolic 39–85
[2019-12-16 04:29] LABS: BASOPHILS % (AUTO) 0.3 % (0.0-2.0); EOSINOPHILS % (AUTO) 1.9 % (0.0-6.0); HEMATOCRIT 23 % (39-51); LYMPHOCYTES # (AUTO) 0.6 /CMM (0.8-4.8); LYMPHOCYTES % (AUTO) 4.6 % (20.0-44.0); MEAN CORPUSCULAR HGB CONC 30 g/dl (31.0-36.0); MEAN CORPUSCULAR VOLUME 88 fL (80-96); MONOCYTES # (AUTO) 1.4 /CMM (0.1-1.30); MONOCYTES % (AUTO) 11.2 % (2.0-12.0); NEUTROPHILS # (AUTO) 10.6 /CMM (1.8-8.9); PLATELET COUNT (AUTO) 552 /CMM (150-450); RED BLOOD CELL COUNT(AUTO) 2.62 MIL/uL (4.5-6.0); WHITE BLOOD COUNT (AUTO) 12.9 K/uL (4.3-11.0)
[2019-12-16 04:35] LABS: CALCIUM, SERUM 8.9 mg/dL (8.5-10.1); CREATININE 4.6 mg/dL (0.6-1.3); MAGNESIUM 2.2 mg/dL (1.8-2.4); PHOSPHORUS 5.6 mg/dL (2.5-4.9); POTASSIUM 4.9 mmol/L (3.5-5.1)
[2019-12-16 04:43] LABS: HEMOGLOBIN 6.9 g/dL (13.5-17.5)
--- NOTE | 2019-12-16 04:45 | NUR ---
0445 RECEIVED CRITICAL HGB 6.9 FROM LAB, CAR COUPLER LEANNE MADE AWARE WITH ORDER TO TRANSFUSE 1 UNIT PRBC NOW. ORDER NOTED.
[2019-12-16 05:15] LABS: LYMPHOCYTES % (MANUAL) 9 % (16-48); NEUTROPHILS % (MANUAL) 79 (42-76)
[2019-12-16 05:16] LABS: MONOCYTES % (MANUAL) 12 % (0-11.0)
--- NOTE | 2019-12-16 05:30 | NUR ---
RECEIVED BLOOD FROM LAB AND VERIFIED STARTED BLOOD TRANSFUSION OF PRBC PER MD ORDER PT IS AWAKE A/O X4 SPO2 93% OF 4L O2 VIA NC, WITH LATEST V/S 150/63 HR 83 RR20 TEMP 98.2 WILL CONT TO MONITOR THE PT
--- NOTE | 2019-12-16 05:45 | NUR ---
TRANSFUSION OF PRBC ONGOING WITH CURRENT V/S 142/71 HR 83 RR 20 TEMP 98F WITH SPO2 95% PT IS AWAKE A/O X4 NO SIGN AND SYMPTOMS OF TRANSFUSION REACTION NOTED
[2019-12-16] MEDS ORDERED: IODIXANOL 150 ML IV ONE (06:10)
[2019-12-16] MEDS ORDERED: IV NS 0.9% 500 ML IV ONE (06:12)
--- NOTE | 2019-12-16 06:48 | NUR ---
RN FROM [facility] DIRECTOR STYLE THE PT PT IS AWAKE A/O X3 VERBAL AND WITH ONGOING PRBC TRANSFUSION TOLERATING WELL WITH NO TRANSFUSION REACTION NOTED AT THIS TIME, PT LATEST BP IS 143/73 HR 84 RR 20 SPO2 97% ON O2 4L VIA NC, GIVE REPORT TO WARDROBE IMAGE CONSULTANT RN FOR DENICE
[2019-12-16] MEDS ORDERED: LIDOCAINE HCL/PF 1% 30 ML SDV ONE (07:15)
[2019-12-16] MEDS ORDERED: MIDAZOLAM HCL 2 MG/2ML VIAL ONE (07:16)
[2019-12-16] MEDS ORDERED: FENTANYL PF 100MCG/2ML AMPUL ONE (07:16)
[2019-12-16] MEDS ORDERED: IODIXANOL 320MG/ML 50 ML IV ONE (07:18)
[2019-12-16] MEDS: BLOOD SUGAR DIAGNOSTIC 1 EACH STRIP IN SCH ×4 (07:30→21:41)
--- NOTE | 2019-12-16 07:30 | NUR ---
OPENING NOTES PATIENT IS CURRENTLY AT [facility]COM[facility] [employer]NALY[employer], WILL OLD MEDICATIONS UNTIL HE WILL RETURN
[2019-12-16] MEDS ORDERED: HEPARIN SODIUM, PORCINE 1,000 UNIT/ML VIAL ONE ×3 (07:43→08:33)
[2019-12-16] MEDS ORDERED: CLOPIDOGREL BISULFATE 300 MG TABLET ONE (08:26)
[2019-12-16] MEDS: CLOPIDOGREL BISULFATE 75 MG TABLET PO SCH (09:00)
--- NOTE | 2019-12-16 09:30 | NUR ---
received pt from cat lab, s/p PCI in LAD, femoral sheath removed by cat lab, no bleeding noted, SR, sat well on 3L 02, v/s stable, no chest pain verbalized.
[2019-12-16] MEDS: LABETALOL HCL (100MG) 100 MG TABLET PO SCH ×2 (09:44→17:00)
[2019-12-16] MEDS: VIT B CMPLX 3/FA/VIT C/BIOTIN 1 TAB TABLET PO SCH (09:44)
[2019-12-16] MEDS: FERROUS SULFATE (325 MG) 325 MG/TAB TABLET PO SCH (09:44)
[2019-12-16] MEDS: AMLODIPINE BESYLATE 10 MG TABLET PO SCH (09:44)
[2019-12-16] MEDS: CALCIUM CARBONATE 500 MG TAB.CHEW PO SCH ×3 (09:44→17:00)
[2019-12-16] MEDS: CLONIDINE HCL 0.1 MG TABLET PO SCH ×2 (09:44→17:01)
[2019-12-16] MEDS: ASCORBIC ACID 500 MG TABLET PO SCH (09:44)
[2019-12-16] MEDS: PANTOPRAZOLE 40 MG TABLET.DR PO SCH (09:44)
[2019-12-16] MEDS: hydrALAZINE HCL 50 MG TABLET PO SCH ×3 (09:45→17:01)
--- NOTE | 2019-12-16 11:40 | NUR ---
RN NOTE INITIAL BLOOD SUGAR THAT WAS CHECKED AT 2200 (114) WAS SCANNED FROM WRONG ID BAND THAT WAS ON THE CORRECT PATIENT. WILL RECHEKC BLOOD SUGAR USING CORRECT ID BAND. Addendum: 12/17/19 at 0029 by GIANFRANCO HESS RN ERROR: TIME CORRECTED 2340
[2019-12-16] MEDS: ASPIRIN 81 MG TAB.CHEW PO SCH (12:22)
--- NOTE | 2019-12-16 16:12 | NUR ---
pt is resting in the bed, a/o x4, follows commands, SR, sat well on 3L 02, no bleeding from femoral access site, v/s stable, no pain, pt cleaned and changed.
--- NOTE | 2019-12-16 19:16 | NUR ---
RN NOTE PT IN BED AWAKE/ALERT AND ORIENTED X 4. IN SEMI ERNST'S POSITION. PT DENIES PAIN OR DISCOMFORT. REPOSITIONED PT REQUESTED AND TOLERATING WELL. PT ON 3L OF O2 VIA NC. RESPIRATIONS EVEN AND UNLABORED. VITAL SIGNS STABLE VIA BEDSIDE MONITOR. IV LINES FLUSHED AND INTACT. NO SIGNS OF BLEEDING NOTED. CALL LIGHT WITHIN REACH, SAFETY MEASURES IN PLACE, WILL MONITOR PATIENT
--- NOTE | 2019-12-16 20:44 | NUR ---
RN NOTE DENISE CARE RENDERED. PT REFUSED BED BATH AT THIS TIME.
[2019-12-16] MEDS: ATORVASTATIN 40 MG TABLET PO SCH (21:42)
[2019-12-17] VITALS (63 sets, daily range): BP systolic 86–165; BP diastolic 47–88
--- NOTE | 2019-12-17 | NUR ---
RN NOTE PT HAD 1 BOWEL MOVEMENT. DENISE CARE RENDERED. PT REFUSED PARTIAL BED BATH AND LINEN CHANGE.
--- NOTE | 2019-12-17 00:14 | NUR ---
RN NOTE BLOOD SUGAR RECHECKED 155. PT REFUSING INSULIN AT THIS TIME DESPITE EXPLANATION OF RISKS VS ADVANTAGES.
--- NOTE | 2019-12-17 02:51 | NUR ---
RN NOTE PT SLEEPING IN BED COMFORTABLY WITHOUT SIGNS OF DISTRESS OR DISCOMFORT.
--- NOTE | 2019-12-17 04:04 | NUR ---
RN NOTE REGISTERED NURSE MATERNAL CHILD AT BEDSIDE DRAWING AM LABS.
[2019-12-17 04:27] LABS: BASOPHILS # (AUTO) 0.1 /CMM (0.0-0.2); BASOPHILS % (AUTO) 0.4 % (0.0-2.0); EOSINOPHILS % (AUTO) 1.4 % (0.0-6.0); HEMATOCRIT 28 % (39-51); HEMOGLOBIN 8.5 g/dL (13.5-17.5); LYMPHOCYTES # (AUTO) 1.1 /CMM (0.8-4.8); LYMPHOCYTES % (AUTO) 8.5 % (20.0-44.0); MEAN CORPUSCULAR HGB CONC 30 g/dl (31.0-36.0); MEAN CORPUSCULAR VOLUME 90 fL (80-96); MONOCYTES # (AUTO) 0.7 /CMM (0.1-1.30); MONOCYTES % (AUTO) 5.2 % (2.0-12.0); NEUTROPHILS # (AUTO) 10.9 /CMM (1.8-8.9); NEUTROPHILS % (AUTO) 84.5 % (43.0-81.0); PLATELET COUNT (AUTO) 529 /CMM (150-450); RED BLOOD CELL COUNT(AUTO) 3.09 MIL/uL (4.5-6.0)
[2019-12-17 04:44] LABS: CALCIUM, SERUM 9.1 mg/dL (8.5-10.1); CREATININE 5.7 mg/dL (0.6-1.3); MAGNESIUM 2.3 mg/dL (1.8-2.4); PHOSPHORUS 7.5 mg/dL (2.5-4.9); POTASSIUM 5.3 mmol/L (3.5-5.1)
--- NOTE | 2019-12-17 05:53 | NUR ---
RN NOTE PT AWAKE AND ALERT IN BED. WITH SMALL BOWEL MOVEMENT (SMEAR) OFFERED PT BED BATH BUT PT REFUSED. DENISE CARE RENDERED. COMPLETE LINEN AND GOWN CHANGE DONE.
--- NOTE | 2019-12-17 06:35 | NUR ---
RN NOTE NO ACUTE CHANGES OBSERVED OVERNIGHT. PT SLEEPING IN BED COMFORTABLY BUT EASILY AROUSABLE. ON 3L OF O2 VIA NC. RESPIRATIONS EVEN AND UNLABORED. NO SIGNS OF PAIN OR DISCOMFORT. VITAL SIGNS STABLE VIA BEDSIDE MONITOR. PCI SITE (RIGHT FEMORAL) WITHOUT SIGNS OF BLEEDING OR COMPLICATIONS. ALL NEEDS MET AND ATTENDED TO. CALL LIGHT WITHIN REACH, SAFETY MEASURES IN PLACE, BED ALARM ON, BED IN LOWEST POSITION, SIDE RAILS X2 UP, WILL ENDORSE TO MORNING RN FOR DENICE. Addendum: 12/17/19 at 0645 by GIANFRANCO HESS RN OFFERED TO PLACE DVT PUMP BUT PT CONTINUES TO REFUSE DESPITE EXPLANATION OF RISKS VS ADVANTAGES.
--- NOTE | 2019-12-17 08:00 | NUR ---
refused insulin, blood sugar 141
--- NOTE | 2019-12-17 08:00 | NUR ---
RN OPENING NOTES Patient present at bed, sitting, A/O x4, denies pain or discomfort, on NC via 3L of O2, tolerating well, SPO2 is 98%, no SOB or resp distress noted, Sinus Rhytm on tele-monitor, multiple wound dressings noted, intact, L FA and R FA IV lines noted, R CW HD cath noted, all patent, intact. Safety measures in place, call light in reach, bed in lowest positon, bed is locked, bed alarm is on, will cont to monitor closely
[2019-12-17] MEDS: BLOOD SUGAR DIAGNOSTIC 1 EACH STRIP IN SCH ×4 (08:20→21:22)
[2019-12-17] MEDS: LABETALOL HCL (100MG) 100 MG TABLET PO SCH ×2 (09:10→16:43)
[2019-12-17] MEDS: CALCIUM CARBONATE 500 MG TAB.CHEW PO SCH ×3 (09:10→16:40)
[2019-12-17] MEDS: ASPIRIN 81 MG TAB.CHEW PO SCH (09:10)
[2019-12-17] MEDS: CLONIDINE HCL 0.1 MG TABLET PO SCH ×2 (09:11→16:43)
[2019-12-17] MEDS: ASCORBIC ACID 500 MG TABLET PO SCH (09:11)
[2019-12-17] MEDS: AMLODIPINE BESYLATE 10 MG TABLET PO SCH (09:11)
[2019-12-17] MEDS: VIT B CMPLX 3/FA/VIT C/BIOTIN 1 TAB TABLET PO SCH (09:11)
[2019-12-17] MEDS: hydrALAZINE HCL 50 MG TABLET PO SCH ×3 (09:12→16:43)
[2019-12-17] MEDS: FERROUS SULFATE (325 MG) 325 MG/TAB TABLET PO SCH (09:12)
[2019-12-17] MEDS: PANTOPRAZOLE 40 MG TABLET.DR PO SCH (09:12)
[2019-12-17] MEDS: CLOPIDOGREL BISULFATE 75 MG TABLET PO SCH (09:16)
--- NOTE | 2019-12-17 10:53 | NUR ---
MRI rescheduled for 1200 today
--- NOTE | 2019-12-17 12:00 | NUR ---
Went for MRI procedure with the patient, O2 tank with us, patient on assembler unit, secured with belts
--- NOTE | 2019-12-17 13:00 | NUR ---
Backed from MRI, tolerated well, VS stable, no pain or discomfort, connected back to monitors
--- NOTE | 2019-12-17 15:00 | NUR ---
reports pain at Right shoulder area, 5/10, cecil administer PRN med
[2019-12-17] MEDS: ACETAMINOPHEN 325 MG TABLET PO PRN (15:13)
[2019-12-17] MEDS: INSULIN REGULAR, HUMAN 100 UNIT/ML 3 ML VIAL SQ PRN (17:16)
--- NOTE | 2019-12-17 17:20 | NUR ---
Transfer patient to [place] [id number], [facility] bed, O2 tank in place, tolerating well, report given to ALVAREZ Rowe
--- NOTE | 2019-12-17 17:36 | NUR ---
RN NOTES PATIENT RECEIVED FROM FESTUS PINO FROM ICU. PATIENT ALERT AND ORIENTED X 4. ON NASAL CANNULA 3 LITERS TOLERATING SETTING WELL WITH SPO2 AT 96%. PATIENT DRESSINGS INTACT ON BILATERAL LOWER FEET AND RIGHT HAND NO LEAKAGE OR DRAINAGE PRESENT. IV ACCESS INTACT AND PATENT. PATIENT PRESENTS WITH NO PAIN OR DISCOMFORT AT THIS TIME. EMBROIDERER HAND AT BEDSIDE AWAITING FOR PATIENT TO START DIALYSIS. PER RN, 3 UNITS OF INSULIN GIVEN TO PATIENT DUE TO SLIDING SCALE PROTOCOL. VITAL SIGNS WNL. SAFETY PRECAUTIONS IMPLEMENTED WITH BED LOCKED, BED IN THE LOWEST POSITION, BILATERAL SIDE RAILS UP, BED ALARM ON, AND CALL LIGHT WITHIN EASY REACH. WILL CONTINUE TO MONITOR PATIENT.
--- NOTE | 2019-12-17 18:46 | NUR ---
RN NOTES PATIENT IN BED RESTING COMFORTABLY, FOURTH GRADE TEACHER AT BEDSIDE. PATIENT'S ALERT AND ORIENTED X 4. ON NASAL CANNULA 3 LITERS WITH NO RESPIRATORY DISTRESS PRESENT AT THIS TIME WITH EVEN NON-LABORED BREATHING, AND NO SOB NOTED. IV ACCESS INTACT AND PATENT. PATIENT PRESENTS WITH NO PAIN OR DISCOMFORT AT THIS TIME. SKIN KEPT CLEAN AND DRY, DRESSINGS INTACT AND NO LEAKAGE PRESENT. PATIENT PRESENTS WITH NO PAIN OR DISCOMFORT AT THIS TIME. MET ALL OF PATIENT'S NEEDS. SAFETY PRECAUTIONS IMPLEMENTED WITH BED LOCKED BED IN THE LOWEST POSITION, BILATERAL SIDE RAILS UP, BED ALARM ON, AND CALL LIGHT WITHIN EASY REACH OF THE PATIENT. WILL ENDORSE PLAN OF CARE TO UPCOMING RN.
[2019-12-17] MEDS ORDERED: LEVOFLOXACIN (250MG) 250 MG TABLET PO SCH (20:00)
[2019-12-17] MEDS ORDERED: VANCOMYCIN 1 GM in IV D5W 250ml IV ONE (20:00)
[2019-12-17] MEDS: ATORVASTATIN 40 MG TABLET PO SCH (21:22)
--- NOTE | 2019-12-17 21:59 | NUR ---
MS/RN OPENING NOTE Patient awake in bed, S/P HD 1000 ml output. A/O x4. BP 142/67 HR 87. Breathing, even, unlabored. Skin warm, pink, dry appropriate for ethnicity. L foot amputation noted. Gangrene noted on right foor and right hand, dressing dry and intact. IV site LFA 20 SL. IV site RFA 20g SL. IV sites patent, intact, no redness, or infiltration. HD cath noted on RCW. Patient is on cardiac diet, tolerating well. BS active. Patient is anuric. Bed in low position, wheels locked, side rails up x2, call light within reach.
--- NOTE | 2019-12-18 06:03 | NUR ---
MS/RN CLOSING NOTE Patient awake in bed, A/O x4. Breathing, even, unlabored. Skin warm, pink, dry appropriate for ethnicity. L foot amputation noted. Gangrene noted on right foot and right hand, dressing changed, dry and intact. IV site LFA 20 SL. IV site RFA 20g SL. IV sites patent, intact, no redness, or infiltration. HD cath noted on RCW. Patient is on cardiac diet, tolerating well. BS active. No bowel movement. Patient is anuric. Bed in low position, wheels locked, side rails up x2, call light within reach.
[2019-12-18] MEDS: INSULIN REGULAR, HUMAN 100 UNIT/ML 3 ML VIAL SQ PRN ×2 (06:25→21:13)
[2019-12-18] MEDS: BLOOD SUGAR DIAGNOSTIC 1 EACH STRIP IN SCH ×4 (06:37→21:12)
[2019-12-18] MEDS ORDERED: VANCOMYCIN POST DIALYSIS 500MG IV PRN ×2 (07:00)
[2019-12-18 08:00] VITALS: BP 123/55
[2019-12-18] MEDS: ASPIRIN 81 MG TAB.CHEW PO SCH ×2 (09:00→09:38)
[2019-12-18] MEDS: ASCORBIC ACID 500 MG TABLET PO SCH ×2 (09:00→09:40)
[2019-12-18] MEDS: CALCIUM CARBONATE 500 MG TAB.CHEW PO SCH ×4 (09:00→17:00)
[2019-12-18] MEDS: AMLODIPINE BESYLATE 10 MG TABLET PO SCH ×2 (09:00→09:40)
[2019-12-18] MEDS: FERROUS SULFATE (325 MG) 325 MG/TAB TABLET PO SCH ×2 (09:00→09:39)
[2019-12-18] MEDS: hydrALAZINE HCL 50 MG TABLET PO SCH ×4 (09:00→17:00)
[2019-12-18] MEDS: VIT B CMPLX 3/FA/VIT C/BIOTIN 1 TAB TABLET PO SCH ×2 (09:00→09:39)
[2019-12-18] MEDS: CLOPIDOGREL BISULFATE 75 MG TABLET PO SCH ×2 (09:00→09:39)
[2019-12-18] MEDS: PANTOPRAZOLE 40 MG TABLET.DR PO SCH ×2 (09:38→09:39)
--- NOTE | 2019-12-18 10:00 | NUR ---
REFUSED AM LABS AFTER SEVERAL ATTEMPTS.
--- NOTE | 2019-12-18 10:30 | NUR ---
REFUSED AM MEDS AFTER RN CAME BACK SEVERAL TIMES.
[2019-12-18] MEDS: LABETALOL HCL (100MG) 100 MG TABLET PO SCH ×2 (10:43→17:00)
[2019-12-18] MEDS: CLONIDINE HCL 0.1 MG TABLET PO SCH ×2 (10:43→10:46)
--- NOTE | 2019-12-18 11:00 | NUR ---
claritza yates pt. refusing some meds.
[2019-12-18 11:06] LABS: BASOPHILS # (AUTO) 0.1 /CMM (0.0-0.2); EOSINOPHILS % (AUTO) 1.5 % (0.0-6.0); HEMATOCRIT 26 % (39-51); HEMOGLOBIN 7.9 g/dL (13.5-17.5); LYMPHOCYTES # (AUTO) 1.1 /CMM (0.8-4.8); LYMPHOCYTES % (AUTO) 8.2 % (20.0-44.0); MEAN CORPUSCULAR HGB CONC 31 g/dl (31.0-36.0); MEAN CORPUSCULAR VOLUME 89 fL (80-96); MONOCYTES # (AUTO) 0.9 /CMM (0.1-1.30); MONOCYTES % (AUTO) 6.3 % (2.0-12.0); NEUTROPHILS # (AUTO) 11.1 /CMM (1.8-8.9); PLATELET COUNT (AUTO) 521 /CMM (150-450); WHITE BLOOD COUNT (AUTO) 13.4 K/uL (4.3-11.0)
[2019-12-18 11:20] LABS: CALCIUM, SERUM 8.5 mg/dL (8.5-10.1); CREATININE 4.3 mg/dL (0.6-1.3); POTASSIUM 4.1 mmol/L (3.5-5.1)
--- NOTE | 2019-12-18 12:36 | NUR ---
REFUSED INSULIN COVERAGE FOR BGL OF 149,POOR APPETITE.
[2019-12-18 16:00] VITALS: BP 134/67
--- NOTE | 2019-12-18 17:34 | NUR ---
refusing insulin coverage as well as trandate and other meds.
--- NOTE | 2019-12-18 17:35 | NUR ---
refusing dressing changes to both feet and rt. hand
--- NOTE | 2019-12-18 19:00 | NUR ---
RN OPENING NOTES Received patient awake, sitting on edge of bed. No complaints made at this time. Discussed to patient POC, pt verbalized understanding. On fall precautions, will continue to monitor accordingly.
[2019-12-18 20:00] VITALS: BP 145/75
[2019-12-18] MEDS: ATORVASTATIN 40 MG TABLET PO SCH (21:12)
--- NOTE | 2019-12-18 21:15 | NUR ---
RN NOTES R foot wound dressing done as ordered. Pt tolerated well. Encourage patient to adhere into diabetic regimen. Blood sugar checke, 163. Pt refused insulin coverage at this time. Per patient he is not eating anything tonight. Instructed patient to call the nurse if he is feeling anything unusual, dizziness, cold, clammy skin or hypoglycemia, pt verbalized understanding. Will continue to monitor accordingly.
[2019-12-19] MEDS: ACETAMINOPHEN 325 MG TABLET PO PRN (05:25)
--- NOTE | 2019-12-19 06:30 | NUR ---
RN CLOSING NOTES Pt asleep on bed, no new complaints made. Preferred to check blood sugar just before eating. All nursing needs attended. Due meds given as ordered. Endorsed.
[2019-12-19 08:00] VITALS: BP 163/82
[2019-12-19] MEDS: BLOOD SUGAR DIAGNOSTIC 1 EACH STRIP IN SCH ×2 (08:37→12:00)
--- NOTE | 2019-12-19 08:57 | NUR ---
RN NOTE THE PATIENT`S BLOOD SUGAR IS 154. THE PATIENT REFUSES INSULIN DESPITE EXPLAINING RISKS AND BENEFITS.
[2019-12-19] MEDS: CALCIUM CARBONATE 500 MG TAB.CHEW PO SCH ×2 (09:00→13:00)
[2019-12-19] MEDS: ASPIRIN 81 MG TAB.CHEW PO SCH (09:00)
[2019-12-19] MEDS: CLONIDINE HCL 0.1 MG TABLET PO SCH (09:00)
[2019-12-19] MEDS: VIT B CMPLX 3/FA/VIT C/BIOTIN 1 TAB TABLET PO SCH (09:00)
[2019-12-19] MEDS: LABETALOL HCL (100MG) 100 MG TABLET PO SCH (09:00)
[2019-12-19] MEDS: ASCORBIC ACID 500 MG TABLET PO SCH (09:00)
[2019-12-19] MEDS: FERROUS SULFATE (325 MG) 325 MG/TAB TABLET PO SCH (09:00)
[2019-12-19] MEDS: hydrALAZINE HCL 50 MG TABLET PO SCH ×2 (09:00→13:00)
[2019-12-19] MEDS: CLOPIDOGREL BISULFATE 75 MG TABLET PO SCH (09:00)
[2019-12-19] MEDS: AMLODIPINE BESYLATE 10 MG TABLET PO SCH (09:00)
[2019-12-19] MEDS ORDERED: CLOP75TA15 PO (09:03)
[2019-12-19] MEDS ORDERED: RXVAN XX (09:03)
[2019-12-19] MEDS ORDERED: ASPI-1169 PO (09:03)
--- NOTE | 2019-12-19 09:13 | NUR ---
RN NOTE THE PATIENT IS RECEIVED IN BED. PATIENT IS ALERT AND ORIENTED X4. RECEIVING OXYGEN AT 3L/MIN VIA NASAL CANNULA AND DENIES SOB. RESPIRATION REGULAR AND UNLABORED. DENIES PAIN. LFA G 20 PATENT AND SALINE LOCKED. RIGHT CHEST WALL HD CATH PRESENT. BED LOW AND LOCKED. SIDE RAILS UP X3. CALL LIGHT WITHIN REACH. WILL CONTINUE TO MONITOR.
--- NOTE | 2019-12-19 09:52 | NUR ---
RN NOTE THE PATIENT REFUSED DIALYSIS DESPITE EXPLAINING HIM THE RISKS AND BENEFITS. DR MORGAN IS MADE AWARE.
--- NOTE | 2019-12-19 09:56 | NUR ---
RN NOTE THE PATIENT REFUSED ALL MORNING MEDICATIONS DESPITE EXPLAINING HIM RISKS AND BENEFITS MULTIPLE TIMES. DR DIEZ IS MADE AWARE.
--- NOTE | 2019-12-19 09:58 | NUR ---
RN NOTE PATIENT COMPLAINS OF RIGHT SHOULDER PAIN 07/20. DR DIEZ IS MADE AWARE AND NEW ORDER OF NORCO 5/325 1 TAB PO Q6HR PRN IS RECEIVED. THE ORDER IS READ BACK, VERIFIED. NOTED AND CARRIED OUT.
[2019-12-19] MEDS ORDERED: HYDROCODONE/APAP 5/325MG TABLET PO PRN (10:00)
--- NOTE | 2019-12-19 11:40 | NUR ---
RN NOTE THE PATIENT ALERT AND ORIENTED X4. DENIES PAIN. IN ROOM AIR AND SATURATION IS AT 97%. RESPIRATION REGULAR AND UNLABORED. THE PATIENT IN NO APPARENT DISTRESS. DISCHARGE EDUCATION PROVIDED TO THE PATIENT AND SHE VERBALIZED UNDERSTANDING. THE PATIENT LEFT THE HOSPITAL IN STABLE CONDITION. Addendum: 12/19/19 at 1149 by RAJ SY RN RN NOTE WRONG NOTE
--- NOTE | 2019-12-19 11:49 | NUR ---
RN NOTE THE PATIENT REFUSED BLOOD DRAW DESPITE EXPLAINING RISKS AND BENEFITS.
[2019-12-19] MEDS: INSULIN REGULAR, HUMAN 100 UNIT/ML 3 ML VIAL SQ PRN (12:02)
[2019-12-19 13:00] VITALS: BP 156/92
--- NOTE | 2019-12-19 13:00 | NUR ---
RN NOTE REPORT GIVEN TO RECEIVING NURSE MORALES
--- NOTE | 2019-12-19 13:21 | NUR ---
RN NOTE THE PATIENT IS IN STABLE CONDITION. REPORT GIVEN TO ALVAREZ HAWLEY.
--- NOTE | 2019-12-19 14:30 | NUR ---
RN MS DISCHARGE NOTE PT WAS DISCHARGED IN STABLE CONDITION. DISCHARGE MEDICATIONS AND EDUCATION PROVIDED TO PT, PT VERBALIZED UNDERSTANDING. IV TO RT FA REMOVED. NO FC IN PLACE. PT D/C TO [facility]. TRANSPORTED VIA GURNEY, ACCOMPANIED BY 2 AMBULANCE PERSONNEL. PT DISCHARGED IN STABLE CONDITION.
== END 2019-12-19 14:54 | DRG 950 ==
LOC: ER 02:49 → ICU 07:53 → TELE2 12:15 → TELE 12-10 01:48 → MED 12-10 08:57 → ICU 12-13 10:52 → TELE1 12-14 12:37 → MEDSG1 12-15 07:34 → ICU 12-16 09:33 → MED 12-17 17:33
PROVIDERS: ADMIT Student in an Organized Health Care Education/Training Program; ATTEND Internal Medicine
PROC: 5A1D70Z Performance of Urinary Filtration, Intermittent, Less than 6 Hours Per Day (ICD-10-PCS; 2019-12-09)
PROC: 4A023N7 Measurement of Cardiac Sampling and Pressure, Left Heart, Percutaneous Approach (ICD-10-PCS; 2019-12-13)
PROC: B211YZZ Fluoroscopy of Multiple Coronary Arteries using Other Contrast (ICD-10-PCS; 2019-12-13)
PROC: 047R3ZZ Dilation of Right Posterior Tibial Artery, Percutaneous Approach (ICD-10-PCS; 2019-12-13)
PROC: 047T3ZZ Dilation of Right Peroneal Artery, Percutaneous Approach (ICD-10-PCS; 2019-12-13)
PROC: 04CT3ZZ Extirpation of Matter from Right Peroneal Artery, Percutaneous Approach (ICD-10-PCS; 2019-12-13)
PROC: 04CR3ZZ Extirpation of Matter from Right Posterior Tibial Artery, Percutaneous Approach (ICD-10-PCS; 2019-12-13)
PROC: 047R3ZZ Dilation of Right Posterior Tibial Artery, Percutaneous Approach (ICD-10-PCS; 2019-12-13)
PROC: 047T3ZZ Dilation of Right Peroneal Artery, Percutaneous Approach (ICD-10-PCS; 2019-12-13)
PROC: 04CR3ZZ Extirpation of Matter from Right Posterior Tibial Artery, Percutaneous Approach (ICD-10-PCS; 2019-12-13)
PROC: 30233N1 Transfusion of Nonautologous Red Blood Cells into Peripheral Vein, Percutaneous Approach (ICD-10-PCS; 2019-12-14)
PROC: 027034Z Dilation of Coronary Artery, One Artery with Drug-eluting Intraluminal Device, Percutaneous Approach (ICD-10-PCS; principal; 2019-12-16)
DX: J96.01 Acute respiratory failure with hypoxia (principal); J15.9 Unspecified bacterial pneumonia; E11.65 Type 2 diabetes mellitus with hyperglycemia; I13.2 Hypertensive heart and chronic kidney disease with heart failure and with stage 5 chronic kidney disease, or end stage renal disease; E11.52 Type 2 diabetes mellitus with diabetic peripheral angiopathy with gangrene; E78.5 Hyperlipidemia, unspecified; D64.9 Anemia, unspecified; E87.5 Hyperkalemia; D47.3 Essential (hemorrhagic) thrombocythemia; K21.9 Gastro-esophageal reflux disease without esophagitis; E11.22 Type 2 diabetes mellitus with diabetic chronic kidney disease; N18.6 End stage renal disease; Z99.2 Dependence on renal dialysis; E44.0 Moderate protein-calorie malnutrition; Z68.21 Body mass index [BMI] 21.0-21.9, adult; I25.10 Atherosclerotic heart disease of native coronary artery without angina pectoris; M86.9 Osteomyelitis, unspecified; Z89.432 Acquired absence of left foot; Z83.3 Family history of diabetes mellitus; Z82.49 Family history of ischemic heart disease and other diseases of the circulatory system; Y95 Nosocomial condition; E11.69 Type 2 diabetes mellitus with other specified complication; D63.1 Anemia in chronic kidney disease; E11.621 Type 2 diabetes mellitus with foot ulcer; G82.50 Quadriplegia, unspecified; Z74.09 Other reduced mobility; L97.509 Non-pressure chronic ulcer of other part of unspecified foot with unspecified severity; I50.41 Acute combined systolic (congestive) and diastolic (congestive) heart failure
CPT/HCPCS: 36415; 37229; 71045-TC; 73718-TC; 75630-TC; 80048-TC; 80053-TC; 80076-TC; 80202-TC; 82550-TC; 82728-TC; 82962-TC; 83540-TC; 83605-TC; 83615-TC; 83735-TC; 83880; 84100-TC; 84484-TC; 85025-TC; 85378-TC; 85385-TC; 85610-TC; 85730-TC; 86140-TC; 86706; 86850-TC; 87040-TC; 87081-TC; 87340; 90935-TC; 92980; 93307-TC; 93312-TC; 97530-TC; A6403; C1714; C1725; C1769; C1887; C1894; G0378; G0500; J0692; J0696; J1644; J1815; J1956; J2250; J2405; J3010; J3370; J3490; J7030; J7040; J7050; J7060; P9016-BL; Q9967; U0003

== ENCOUNTER 2021-01-01 17:22 | Inpatient (IN) | payer MEDICAID ==
[~2021-01-01] VITALS: Ht 154.9 cm; Wt 45.1 kg
[~2021-01-01 17:22] MED LIST: ACET325T53 PO; AMLO-213 PO; ASCO500C17 PO; ASPI-1169 PO; ATOR40TA PO; BISA10SU11 RC; CALC500T13 PO; CLON0.1T PO; CLOP75TA15 PO; FERR325T28 PO; GLIP5TAB13 PO; HYDR100T27 PO; INSU100V39 SQ; LABE200T5 PO; MAGN400O6 PO; NA P133E RC; PANT40TA49 PO; RXVAN XX; VIT1TABL44 PO
[2021-01-01] MEDS ORDERED: POLY15DR40 EACHEYE (17:48)
[2021-01-01] MEDS ORDERED: CLOP75TA15 PO (17:48)
[2021-01-01] MEDS ORDERED: FAMO20TA8 PO (17:48)
[2021-01-01] MEDS ORDERED: AMIN30LI2 PO (17:48)
[2021-01-01] MEDS ORDERED: METO25TA20 PO (17:48)
[2021-01-01] MEDS ORDERED: GABA-532 PO (17:48)
[2021-01-01] MEDS ORDERED: ASPI-1169 PO (17:48)
[2021-01-01] MEDS ORDERED: ASCO500T10 PO (17:48)
[2021-01-01] MEDS ORDERED: MELA5TAB PO (17:48)
[2021-01-01] MEDS ORDERED: CHOL100062 PO (17:48)
[2021-01-01] MEDS ORDERED: VITA1TAB56 PO (17:48)
[2021-01-01] MEDS ORDERED: INSU100V39 SQ (17:48)
--- NOTE | 2021-01-01 17:52 | NUR ---
AAOX3, [id number], from B/C c/o sob 60% on 2lpm, 100% on 4lpm via NC, BS 54 D10 infused, last HD friday. Resp is even and unlabored with no apparent distress noted. Skin is warm and non diaphoretic. Placed on school bus monitor. Awaiting md for eval.
[2021-01-01 18:17] LABS: BASOPHILS % (AUTO) 0.3 % (0.0-2.0); HEMATOCRIT 35 % (39-51); HEMOGLOBIN 10.4 g/dL (13.5-17.5); LYMPHOCYTES # (AUTO) 0.3 K/uL (0.8-4.8); LYMPHOCYTES % (AUTO) 1.7 % (20.0-44.0); MEAN CORPUSCULAR HGB CONC 30 g/dl (31.0-36.0); MEAN CORPUSCULAR VOLUME 88 fL (80-96); MONOCYTES # (AUTO) 0.4 K/uL (0.1-1.30); MONOCYTES % (AUTO) 2.7 % (2.0-12.0); NEUTROPHILS # (AUTO) 15.9 K/uL (1.8-8.9); NEUTROPHILS % (AUTO) 95.3 % (43.0-81.0); PLATELET COUNT (AUTO) 346 K/uL (150-450); RED BLOOD CELL COUNT(AUTO) 3.99 MIL/uL (4.5-6.0); WHITE BLOOD COUNT (AUTO) 16.6 K/uL (4.3-11.0)
[2021-01-01] MEDS ORDERED: HONE15GE TP (18:24)
[2021-01-01] MEDS ORDERED: POVI3780 TP (18:24)
[2021-01-01] MEDS ORDERED: COLL30OI TP (18:24)
[2021-01-01 18:27] LABS: CALCIUM, SERUM 7.8 mg/dL (8.5-10.1); CREATININE 3.3 mg/dL (0.6-1.3); POTASSIUM 4.2 mmol/L (3.5-5.1)
[2021-01-01 18:33] LABS: ALBUMIN 2.2 g/dL (3.4-5.0); BILIRUBIN,DIRECT 1.1 mg/dL (0.0-0.2); BILIRUBIN,TOTAL 1.6 mg/dL (0.2-1.0); TOTAL PROTEIN, SERUM 7.8 g/dL (6.4-8.2)
[2021-01-01] MEDS ORDERED: CEFTRIAXONE 1GM BAG (ER ONLY) 50 ML IV ONE ×2 (19:30→20:19)
[2021-01-01] MEDS ORDERED: AZITHROMYCIN 500 MG in IV D5W 250 ML IV ONE (19:30)
[2021-01-01 19:42] LABS: ABG BASE EXCESS 0.9 mmol/L; ABG PCO2 37.7 mmHg (35.0-45.0); ABG PH 7.439 (7.350-7.450); ABG PO2 81.4 mmHg (75.0-100.0); COHb 0.7 % (0.5-1.5); MetHb 0.3 % (0.0-1.5); O2Hb 95.3 % (94.0-97.0); SITE, ABG Left Brachial
--- NOTE | 2021-01-01 19:42 | NUR ---
AWAITING LAB FOR DRAW, WILL START ANTIBIO. AFTER.
[2021-01-01] MEDS ORDERED: AZITHROMYCIN 500 MG VIAL ONE (20:19)
--- NOTE | 2021-01-01 20:54 | NUR ---
SPOKE TO PT'S , AWARE OF PLAN OF CARE. PT ALSO AWARE OF PLAN OF CARE. AWAITING ADMISSION.
--- NOTE | 2021-01-01 20:58 | NUR ---
MRSA SWAB COLLECTED AND SENT TO LAB. PATIENT'S BELONGINGS LIST DONE.
--- NOTE | 2021-01-01 21:55 | NUR ---
PANEL PAGED PER DR PETERSON.
--- NOTE | 2021-01-01 22:44 | NUR ---
REPORT GIVEN TO DELANO PINO FOR DENICE
[2021-01-01] MEDS ORDERED: ACETAMINOPHEN 325 MG TABLET PO PRN (23:30)
[2021-01-01] MEDS ORDERED: INSULIN REGULAR, HUMAN 100 UNIT/ML 3 ML VIAL SQ PRN (23:30)
[2021-01-01] MEDS ORDERED: ONDANSETRON HCL/PF 4 MG/2 ML VIAL IVP PRN (23:30)
[2021-01-01] MEDS ORDERED: Z GUARD REMEDY 2 OZ OINT TP PRN (23:30)
--- NOTE | 2021-01-01 23:37 | NUR ---
PT TRANSFERED PER ACLS PROTOCOL
[2021-01-01 23:45] VITALS: BP 106/46
--- NOTE | 2021-01-02 | NUR ---
SENIOR MARKETING COORDINATOR NOTES, AT 2345 RECEIVED 50 Y O MALE ADMITTED FROM ER DEPARTMENT VIA STRETCHER ACCOMPANIED BY 2 NURSES, UNDER [facility] SERVICES OF [facility], WITH ADMITTING DX PNA, SECONDARY DX ESRD, PATIENT A/O X3 ABLE TO VERBALIZE NEEDS AND CONCERNS, NO SOB/ACUTE DISTRESS NOTED, ON 2LPM VIA NC WITH O2 SAT 97%, 106/46, 88, 18, 98.3, PATIENT NOTED WITH IV IN LEFT FGA 20G, AND RIGHT CHEST WALL HD CATH IN PLACED, PATENT AND INTACT, NOTED WITH BOTH FEET AMPUTATION AND WOUNDS, SACRA/PERINEAL/SCROTUM EXCORIATION/REDNESS, RIGHT HAND NECROTIC FINGERS, WOUND CONSULT ORDER PLACED, AFEBRILE, BED BATH GIVEN, TELE MONITOR ATTACHED AND SHOWED NSR WITH HR 80S AT THIS TIME, S/R OF BED UPX2, CALL LIGHT W/I REACH, WILL CONTINUE TO MONITOR CLOSELY. Addendum: 01/03/21 at 0411 by DELANO YU RN DOCUMENTED UNDER WRONG NURSE NAME
--- NOTE | 2021-01-02 07:00 | NUR ---
RN NOTES, PATIENT CONT ON 2LPM VIA NC WITH O2 SAT > 97%, PATIENT NSR IN THE TELE MONITOR WITH HR 80S AT THIS TIME, AFEBRILE, NO SIGNIFICANT CHANGE IN CONDITION, WITH EPISODE OF HYPOGLYCEMIA UPON ADMISSION 65MG/DL, JUICE AND FOOD PROVIDED, AFTER THAT BLOOD SUGAR 132MG/DL, PATIENT A/O X2 BOWEL MOVEMENTS, WOUND CONSULTATION IN AM FOR WOUNDS TREATMENT, S/R OF BED UPX2, CALL LIGHT W/I REACH, WILL ENDORSE CONTINUITY OF CARE TO ONCOMING NURSE.
--- NOTE | 2021-01-02 07:20 | NUR ---
RN OPENING NOTE RECEIVED PATIENT IN BED. A/O X3. ON 02 AT 4 LPM VIA NC. SOB NOTED. NO S/S OF RESPIRATORY DISTRESS. DENIES ANY PAIN AT THIS TIME. TELE READING SHOWS SR 80's. R IJ HD CATH C/D/I. IV ACCESS ON L FA # 20 G, INTACT AND PATENT. ABLE TO MAKE NEEDS KNOWN. SAFETY MEASURES MAINTAINED. BED IN LOWEST POSITION, BRAKES LOCKED. SIDE RAILS UP X2. CALL LIGHT WITHIN REACH. WILL CONTINUE PLAN OF CARE.
--- NOTE | 2021-01-02 07:41 | NUR ---
WOUND CARE CONSULT: REVIEWED CHART, NURSING DOCUMENTATION AND PHOTOS WHICH INDICATE SACRAL SCARRING AND MULTIPLE WOUNDS, PRESENT ON ADMISSION. DR DAILEY AND DR WHITFIELD TO BE CALLED THIS AM FOR SURGICAL AND DPM CONSULTS. RECOMMENDATIONS MADE FOR SKIN PROTECTION. DISCUSSED WITH NURSING STAFF. FIRST STEP LOW AIRLOSS MATTRESS IS ON ORDER. MD IN AGREEMENT WITH PLAN OF CARE.
[2021-01-02 07:42] LABS: BASOPHILS # (AUTO) 0.1 K/uL (0.0-0.2); BASOPHILS % (AUTO) 0.6 % (0.0-2.0); HEMATOCRIT 36 % (39-51); HEMOGLOBIN 10.7 g/dL (13.5-17.5); LYMPHOCYTES # (AUTO) 0.8 K/uL (0.8-4.8); MEAN CORPUSCULAR HGB CONC 30 g/dl (31.0-36.0); MEAN CORPUSCULAR VOLUME 86 fL (80-96); MONOCYTES # (AUTO) 0.5 K/uL (0.1-1.30); MONOCYTES % (AUTO) 4.4 % (2.0-12.0); NEUTROPHILS # (AUTO) 9.5 K/uL (1.8-8.9); PLATELET COUNT (AUTO) 313 K/uL (150-450); RED BLOOD CELL COUNT(AUTO) 4.13 MIL/uL (4.5-6.0); WHITE BLOOD COUNT (AUTO) 10.8 K/uL (4.3-11.0)
[2021-01-02 07:59] LABS: ALBUMIN 2.3 g/dL (3.4-5.0); BILIRUBIN,TOTAL 1.6 mg/dL (0.2-1.0); CALCIUM, SERUM 7.8 mg/dL (8.5-10.1); CREATININE 3.5 mg/dL (0.6-1.3); MAGNESIUM 2.3 mg/dL (1.8-2.4); PHOSPHORUS 6.5 mg/dL (2.5-4.9); POTASSIUM 4.6 mmol/L (3.5-5.1); TOTAL PROTEIN, SERUM 7.8 g/dL (6.4-8.2)
[2021-01-02] MEDS: BLOOD SUGAR DIAGNOSTIC 1 EACH STRIP IN SCH ×4 (08:58→22:29)
[2021-01-02] MEDS: DEXTROSE 50%-WATER 50 ML DISP.SYRIN IV PRN ×3 (08:58→21:40)
[2021-01-02] MEDS: FAMOTIDINE (20 MG) 20 MG TABLET PO SCH (09:10)
--- NOTE | 2021-01-02 09:11 | NUR ---
RN NOTE PATIENT'S BLOOD SUGAR IS 41. RECHECKED AND RESULT WAS 43. ORANGE JUICE AND D50 IV WAS GIVEN. WILL CONTINUE TO MONITOR.
--- NOTE | 2021-01-02 09:36 | NUR ---
RN NOTE RECHECKED BLOOD SUGAR AFTER 30 MINS. RESULT, 176.
--- NOTE | 2021-01-02 11:27 | NUR ---
RN NOTE RECEIVED CALL FROM LAB,CRITICAL LAB VALUE PROCALCITONIN 7.[address] WALKER MADE AWARE, NO NEW ORDERS GIVEN AT THIS TIME.
[2021-01-02] MEDS ORDERED: IPRATROPIUM NEB FS 0.5 MG/2.5 ML AMPUL.NEB NEB PRN (13:00)
[2021-01-02] MEDS: IPRATROPIUM NEB FS 0.5 MG/2.5 ML AMPUL.NEB NEB SCH ×2 (13:30→19:30)
--- NOTE | 2021-01-02 14:06 | NUR ---
RT Treatment not given due to pending COVID-19 results
--- NOTE | 2021-01-02 18:08 | NUR ---
RN CLOSING NOTE PATIENT RESTING IN BED. A/O X3. ON 02 AT 4 LPM VIA NC. DENIES SOB. NO S/S OF RESPIRATORY DISTRESS. NO REPORTS OF PAIN AT THIS TIME. TELE READING SHOWS SR 70-80's. R IJ HD CATH C/D/I. IV ACCESS ON L FA # 20 G, INTACT AND PATENT. DUE MEDS GIVEN ORDERED. ALL NEEDS HAVE BEEN MET AND ATTENDED. WOUND TREATMENT ORDERED. SAFETY MEASURES MAINTAINED. BED IN LOWEST POSITION, BRAKES LOCKED. SIDE RAILS UP X2. KEPT CALL LIGHT WITHIN REACH. WILL ENDORSE CONTINUITY OF CARE TO ONCOMING SHIFT.
--- NOTE | 2021-01-02 19:30 | NUR ---
RN NOTES, PATIENT RECEIVING HEMODIALYSIS AT THIS TIME, TOLERATED WELL, NO S/S OF SOB/DISTRESS NOTED, WILL CONTINUE TO MONITOR CLOSELY.
[2021-01-02 20:00] VITALS: BP 195/50
[2021-01-02] MEDS ORDERED: CEFTRIAXONE 1 G in IV D5W 50 ML IV SCH (20:00)
--- NOTE | 2021-01-02 20:06 | NUR ---
RT HHN tx not given due to pending PCR, no SOB or respiratory distress noted.
[2021-01-02] MEDS ORDERED: AZITHROMYCIN 500 MG in IV D5W 250 ML IV SCH (21:00)
--- NOTE | 2021-01-02 21:35 | NUR ---
RN NOTES, NOTED PATIENT WITH BLOOD SUGAR LEVEL 55MG/DL, PATIENT A/O BY SYMPTOMATIC, HE ASKED TO CHECK BLOOD SUGAR, PATIENT HAVING HD AT THIS TIME, HD NURSE INFORMED DR JULIENNE HORTON AND HE ORDERED TO STOP HD, WILL ADMINISTER DEXTROSE PER PROTOCOL, VS 147/72, 91, 24, AFEBRILE, WILL CONTINUE TO MONITOR CLOSELY, AMOUNT OF FLUID REMOVED 2,432ML.
--- NOTE | 2021-01-02 22:10 | NUR ---
RN NOTES, BLOOD SUGAR LEVEL AT TIME 177MG/DL, AFTER OF DEXTROSE ADMINISTERED PER PROTOCOL, PATIENT REFUSED TO EAT, BUT ENCOURAGED TO EAT TOLERATED.
[2021-01-02] MEDS: CADEXOMER IODINE 40 GM TUBE TP SCH (23:40)
--- NOTE | 2021-01-02 23:56 | NUR ---
RN NOTES, PATIENT CALLED HE STATED HE WAS HAVING RESPIRATORY DISTRESS, PATIENT PALE, COLD AND CLAMMY, AND DIAPHORETIC, PLACED HIM IN NRM AT 15LPM O2 SAT LEVEL SHOWING 60-70%, BUT PATIENT VERY COLD UNABLE TO GET AN ACCURATE READING, BP 97/47, 50-60S, RT/CHARGE NURSE AT BEDSIDE.
--- NOTE | 2021-01-02 23:58 | NUR ---
RN NOTES, CALLED DR MARY NUR TO INFORM PATIENT'S CONDITION, WHILE INFORMING DOCTOR, PATIENT BECAME UNRESPONSIVE, CODE BLUE STARTED , DID NOT GIVE FURTHER ORDERS BUT TO RUN THE CODE, CODE STARTED AT 0000, PLEASE REFER TO CODE BLUE SHEET FOR FURTHER DETAILS.
[2021-01-03] VITALS (37 sets, daily range): BP systolic 39–167; BP diastolic 16–143
--- NOTE | 2021-01-03 | NUR ---
RN NOTES, CODE BLUE STARTED, CHARGE NURSE, ICU NURSE, ER DR AND RR TEAM, RTS AT BEDSIDE, CHEST COMPRESSIONS IN PROGRESS.
--- NOTE | 2021-01-03 00:09 | NUR ---
ALVAREZ NOTES, CODE FINISHED AT 0009, PATIENT INTUBATED, ALL TEAM AT BEDSIDE, PATIENT WILL BE TRANSFERRED TO ICU ROOM 257. Addendum: 01/03/21 at 0422 by DELANO YU RN PATIENT INTUBATED AT 0012
--- NOTE | 2021-01-03 00:12 | NUR ---
RN NOTES, PATIENT INTUBATED AT THIS TIME
--- NOTE | 2021-01-03 00:15 | NUR ---
RN NOTES, S/P INTUBATION WITH ORDRES FROM ER DR COLLIER TO DO EKG, CBC, BMP, TROPONIN, CXR, NOTED AND CARRIED OUT.
--- NOTE | 2021-01-03 00:30 | NUR ---
RECEIVED PT FROM ANGELICA S/P SHAMIKA BLUE, ACCOMPANIED BY RT, AND ER MD, ORALLY INTUBATED, VENT SETTING PER MD FIO2 100% CURRENTLY SPO2 88%, HOOKED TO MONITOR WITH READING SINUS TACHY, CAROTID AND FEMORAL PULSE IS RAPID AND WEAK, PT PUPIL IS FIX AND DILATED, V/S CHECKED AND RECORDED, PER ANGELICA NURSE, PT JUST FINISHED HD @ 3039-4036 WITH OUTPUT OF 2500 ML, SECURE ORDER FOR BILATERAL SOFT WRIST RESTRAINT FOR SELF EXTUBATION PRECAUTION,OGTUBE INSERTED PLACEMENT CHECKED AND VERIFIED, BED ON LOWEST POSITION AND LOCKED SIDE RAILS UP X2 WILL CONT MONITOR
--- NOTE | 2021-01-03 00:36 | NUR ---
RN NOTES, CALLED EX- BECCA AT [phone] AND UPDATED HER ABOUT PATIENT CONDITION AND PATIENT NOW TRANSFERRED TO ICU ROOM 257, TELEPHONE NUMBER PROVIDED.
[2021-01-03 00:52] LABS: BASOPHILS # (AUTO) 0.1 K/uL (0.0-0.2); BASOPHILS % (AUTO) 0.7 % (0.0-2.0); EOSINOPHILS % (AUTO) 0.1 % (0.0-6.0); HEMATOCRIT 40 % (39-51); HEMOGLOBIN 11.4 g/dL (13.5-17.5); LYMPHOCYTES # (AUTO) 3.3 K/uL (0.8-4.8); LYMPHOCYTES % (AUTO) 18.5 % (20.0-44.0); MEAN CORPUSCULAR HGB CONC 28 g/dl (31.0-36.0); MEAN CORPUSCULAR VOLUME 87 fL (80-96); MONOCYTES # (AUTO) 0.5 K/uL (0.1-1.30); MONOCYTES % (AUTO) 2.5 % (2.0-12.0); NEUTROPHILS # (AUTO) 14.1 K/uL (1.8-8.9); NEUTROPHILS % (AUTO) 78.2 % (43.0-81.0); PLATELET COUNT (AUTO) 274 K/uL (150-450); RED BLOOD CELL COUNT(AUTO) 4.63 MIL/uL (4.5-6.0)
--- NOTE | 2021-01-03 00:58 | NUR ---
RN NOTES, CALLED DR MARY NUR TO INFORM PATIENT'S CONDITION, WHILE INFORMING DOCTOR, PATIENT BECAME UNRESPONSIVE, CODE COOPER STARTED , DID NOT GIVE FURTHER ORDERS BUT TO RUN THE CODE, CODE STARTED AT 0000, PLEASE REFER TO CODE BLUE SHEET FOR FURTHER DETAILS. Addendum: 01/03/21 at 0130 by DELANO YU RN WRONG TIME DOCUMENTED
[2021-01-03] MEDS ORDERED: PROPOFOL 100 ML IV PRN (01:00)
[2021-01-03 01:23] LABS: BILIRUBIN,TOTAL 1.8 mg/dL (0.2-1.0); CALCIUM, SERUM 8.5 mg/dL (8.5-10.1); POTASSIUM 4.5 mmol/L (3.5-5.1); TOTAL PROTEIN, SERUM 8.9 g/dL (6.4-8.2)
[2021-01-03] MEDS ORDERED: HEPARIN INFUSION/D5W 500 ML IV ONE (01:23)
--- NOTE | 2021-01-03 01:23 | NUR ---
RECEIVED ORDER FROM DR HERNANDEZ TO START HEPARIN DRIP FOR ACS FOR THIS PT AND ORDER FOR PROPOFOL TO TITRATE PER PROTOCOL NOTED AND CARRIED OUT
[2021-01-03] MEDS ORDERED: INSULIN REGULAR, HUMAN 100 UNIT/ML 3 ML VIAL SQ PRN (01:30)
[2021-01-03] MEDS ORDERED: HEPARIN INFUSION/D5W 500 ML IV PRN (01:30)
[2021-01-03] MEDS ORDERED: HEPARIN SODIUM, PORCINE 5000 UNITS/1 ML VIAL IV ONE (01:30)
[2021-01-03] MEDS ORDERED: DEXTROSE 50%-WATER 50 ML DISP.SYRIN IV PRN (01:30)
[2021-01-03 01:32] LABS: ALBUMIN 2.6 g/dL (3.4-5.0); CREATININE 2.8 mg/dL (0.6-1.3)
[2021-01-03 01:35] LABS: ABG BASE EXCESS -5.6 mmol/L; ABG OXYGEN SATURATION 99.2 % (92.0-98.5); ABG PCO2 40.6 mmHg (35.0-45.0); ABG PH 7.314 (7.350-7.450); ABG PO2 217.3 mmHg (75.0-100.0); AaDO2 455.1 mmHg; COHb 0.7 % (0.5-1.5); MetHb 0.1 % (0.0-1.5); O2Hb 98.4 % (94.0-97.0); SITE, ABG Left Brachial; VENT MODE, BG AC 14 400 100% +5
--- NOTE | 2021-01-03 02:17 | NUR ---
RT responded to code blue. pt intubated with 7.5 ett, 24@lip. equal chest rise noted. vent settings: AC 18 400 100% +10. vent plugged in to red outlet. alarms on and audible. ambu bag at bedside. abg to be done. will continue to monitor.
[2021-01-03] MEDS ORDERED: NOREPINEPHRINE 8MG/250ML RTU 250 ML IV ONE (04:26)
[2021-01-03] MEDS ORDERED: NOREPINEPHRINE 8 MG in IV NS 0.9% 242 ML IV PRN (04:30)
[2021-01-03] MEDS ORDERED: BLOOD SUGAR DIAGNOSTIC 1 EACH STRIP IN SCH (06:00)
[2021-01-03] MEDS: IPRATROPIUM NEB FS 0.5 MG/2.5 ML AMPUL.NEB NEB SCH (06:44)
--- NOTE | 2021-01-03 07:01 | NUR ---
DR NAVARRO SEEN THE PT WITH ORDER TO CHANGE THE LEVOPHED TO NEOSYNEPHRINE TITRATE PER PROTOCOL NOTED AND CARRIED OUT
--- NOTE | 2021-01-03 07:20 | NUR ---
ICU OPENING NOTES RECEIVED PT INTUBATED ETT 7.07/01, VENT SETTINGS AC: 18, TV 400, FIO2 80% AND PEEP 5. TOLERATNG VENT SETTINGS WELL. NO SOB OR ANY S/S OF RESPIRATORY DISTRESS NOTED. IV ACCESS ON LFA #20 AND L AC#20 BOTH INTACT, PATENT AND FLUSHED. SEDATED ON DIPRIVAN @20MCG/KG/MIN. LEVO @0.2MCG/KG/MIN. ON HEPARIN DRIP. OGT IN PLACE. BILATERAL SOFT WRIST RESTRAINTS NOTED. CHECKED FOR CIRCULATION PER PROTOCOL. SAFETY MEASURES IN PLACE. BED LOCKED AND IN LOWEST POSITION WITH SIDE RAILS UP X3. WILL CONTINUE TO MONITOR.
[2021-01-03] MEDS ORDERED: CEFEPIME 1 GM in IV D5W 50 ML IV SCH ×2 (07:30→09:00)
[2021-01-03] MEDS ORDERED: HYDROCORTISONE SOD SUCCINATE 100 MG/2 ML VIAL IV SCH (07:30)
[2021-01-03] MEDS: PHENYLEPHRINE 100 MG in IV NS 0.9% 240 ML IV PRN ×2 (07:58→08:40)
[2021-01-03] MEDS ORDERED: VANCOMYCIN 1 GM in IV D5W 250ml IV ONE (08:00)
[2021-01-03 08:13] LABS: ABG BASE EXCESS -2.1 mmol/L; ABG OXYGEN SATURATION 92.4 % (92.0-98.5); ABG PCO2 35.9 mmHg (35.0-45.0); ABG PH 7.406 (7.350-7.450); ABG PO2 66.1 mmHg (75.0-100.0); AaDO2 466.6 mmHg; COHb 0.8 % (0.5-1.5); MetHb 0.1 % (0.0-1.5); O2Hb 91.6 % (94.0-97.0); PEEP,BG 5 cm H2O; SITE, ABG Left Femoral; VT, ABG 400 mL
--- NOTE | 2021-01-03 08:23 | NUR ---
vent changes below per dr. Rodríguez: PEEP +8 FIO2 60% Addendum: 01/03/21 at 0824 by CHAI MARIE RT Amended: Links added.
--- NOTE | 2021-01-03 08:40 | NUR ---
RN NOTES PUPILS FIXED, NON REACTIVE AT 3. NO GAG REFLEX, NO COUGHING REFLEX. NO PALPABLE PULSE. CODE BLUE STARTED. REFER TO CODE BLUE SHEET.
[2021-01-03] MEDS: FAMOTIDINE (20 MG) 20 MG TABLET PO SCH (09:00)
[2021-01-03] MEDS: CADEXOMER IODINE 40 GM TUBE TP SCH (09:00)
[2021-01-03] MEDS ORDERED: VANCOMYCIN HCL 1.25 GM in IV D5W 260 ML IV SCH (09:00)
[2021-01-03 09:23] LABS: BASOPHILS # (AUTO) 0.2 K/uL (0.0-0.2); BASOPHILS % (AUTO) 0.7 % (0.0-2.0); EOSINOPHILS % (AUTO) 0.2 % (0.0-6.0); HEMATOCRIT 41 % (39-51); HEMOGLOBIN 11.9 g/dL (13.5-17.5); LYMPHOCYTES # (AUTO) 1.9 K/uL (0.8-4.8); LYMPHOCYTES % (AUTO) 8.2 % (20.0-44.0); MEAN CORPUSCULAR HGB CONC 29 g/dl (31.0-36.0); MEAN CORPUSCULAR VOLUME 85 fL (80-96); MONOCYTES # (AUTO) 0.3 K/uL (0.1-1.30); MONOCYTES % (AUTO) 1.3 % (2.0-12.0); NEUTROPHILS # (AUTO) 20.3 K/uL (1.8-8.9); NEUTROPHILS % (AUTO) 89.6 % (43.0-81.0); PLATELET COUNT (AUTO) 265 K/uL (150-450); RED BLOOD CELL COUNT(AUTO) 4.83 MIL/uL (4.5-6.0); WHITE BLOOD COUNT (AUTO) 22.6 K/uL (4.3-11.0)
[2021-01-03] MEDS ORDERED: ETOMIDATE 2 MG/ML VIAL IV ONE (09:23)
[2021-01-03] MEDS ORDERED: ROCURONIUM BROMIDE 50 MG/5 ML IV ONE (09:23)
[2021-01-03 09:33] LABS: CALCIUM, SERUM 8.1 mg/dL (8.5-10.1); POTASSIUM 5.1 mmol/L (3.5-5.1)
--- NOTE | 2021-01-03 09:40 | NUR ---
RN NOTES NO PALPABLE PULSES. SHAMIKA GAMBOA STARTED. RT AND DR ROSAS AT BEDSIDE. REFER TO CODE BLUE SHEET.
[2021-01-03 09:46] LABS: BILIRUBIN,TOTAL 1.6 mg/dL (0.2-1.0); MAGNESIUM 2.5 mg/dL (1.8-2.4); PHOSPHORUS 5.9 mg/dL (2.5-4.9); TOTAL PROTEIN, SERUM 7.4 g/dL (6.4-8.2)
--- NOTE | 2021-01-03 10:30 | NUR ---
ICU NOTES PEA. NO PALPABLE PULSES. CODE BLUE STARTED. DR. WILLOW LOUIS, DR. JACOBO AND RTs AT BEDSIDE. REFER TO CODE BLUE SHEET.
[2021-01-03] MEDS ORDERED: EPINEPHRINE (1:10,000) SYRINGE 1 MG/10 ML DISP.SYRIN IVP ONE ×2 (10:38→15:06)
[2021-01-03] MEDS ORDERED: CALCIUM CHLORIDE 1,000 MG/10 ML DISP.SYRIN IV ONE (10:38)
--- NOTE | 2021-01-03 11:30 | NUR ---
ICU NOTES PEA. NO PALPABLE PULSES. CODE BLUE STARTED. DR. JACOBO AND RTs AT BEDSIDE. REFER TO CODE BLUE SHEET.
--- NOTE | 2021-01-03 11:40 | NUR ---
vent changes below per dr. peralta: VT 450 PEEP +12 Addendum: 01/03/21 at 1140 by CHAI MARIE RT Amended: Links added.
--- NOTE | 2021-01-03 13:00 | NUR ---
MACHINE BINDER STRIPPER NOTES @0840 PT HAS NO PULSE. FIXED NON REACTIVE PUPILS. NO GAG/COUGH REFLEX. PEA ON THE MONITOR. CODE BLUE INITIATED. DR DAIGLE, RTs, NURSING RECRUITER MANAGER AT BEDSIDE. PT WAS RESUSCITATED, REFER TO CODE BLUE SHEET FOR FULL DETAILS. CALLED AND GAVE UPDATE ON PT STATUS, WANTS EVERYTHING TO BE DONE. STILL FULL CODE. @0940 PEA ON THE MONITOR, NO PULSE, CODE BLUE INITIATED. DR. ROSAS AT BEDSIDE. @1030 PEA ON THE MONITOR, NO PULSE, CODE BLUE INITIATED. DR. LOUIS AND DR. BISWAS AT BEDSIDE. DR. LOUIS INSERTED A LINE ON R FEMORAL. @1130 PEA ON THE MONITOR, NO PULSE, CODE BLUE INITIATED. DR. JACOBO AT BEDSIDE. @1218 PEA ON THE MONITOR, NO PULSE, CODE BLUE INITIATED. DR. LOUIS AT BEDSIDE. TIME OF PRONOUNCED. NO PALPABLE PULSES. ASYSTOLE ON THE MONITOR. INFORMED . CALLED [facility] FROM [facility], REFERRAL # [id number]. MD AND NURSING RECRUITER MANAGER AWARE. POST MORTEM CARE DONE. PLACED IN BAG. TAG ON BAG AND TOE IN PLACE. BELONGINGS AT BEDSIDE, INFORMED AND SAID SHE WILL PICK IT UP.
--- NOTE | 2021-01-03 15:00 | NUR ---
ICU NOTES [place] [facility] [place] BEL[place].
[2021-01-03] MEDS ORDERED: AMIODARONE 150 MG/3 ML VIAL IV ONE (15:06)
[2021-01-04] MEDS ORDERED: VANCOMYCIN POST DIALYSIS 500MG IV PRN (06:00)
== END 2021-01-03 15:07 | DRG 720 ==
LOC: ER 17:27 → TELE1 22:05 → ICU 01-03 00:23
PROVIDERS: ADMIT Hospitalist; ATTEND Internal Medicine
PROC: 5A1D70Z Performance of Urinary Filtration, Intermittent, Less than 6 Hours Per Day (ICD-10-PCS; 2021-01-02)
PROC: 5A1945Z Respiratory Ventilation, 24-96 Consecutive Hours (ICD-10-PCS; principal; 2021-01-03)
PROC: 0BH18EZ Insertion of Endotracheal Airway into Trachea, Via Natural or Artificial Opening Endoscopic (ICD-10-PCS; 2021-01-03)
PROC: 5A2204Z Restoration of Cardiac Rhythm, Single (ICD-10-PCS; 2021-01-03)
PROC: 02HV33Z Insertion of Infusion Device into Superior Vena Cava, Percutaneous Approach (ICD-10-PCS; 2021-01-03)
PROC: B548ZZA Ultrasonography of Superior Vena Cava, Guidance (ICD-10-PCS; 2021-01-03)
DX: A41.9 Sepsis, unspecified organism (principal); J96.01 Acute respiratory failure with hypoxia; I50.23 Acute on chronic systolic (congestive) heart failure; E43 Unspecified severe protein-calorie malnutrition; J18.9 Pneumonia, unspecified organism; E11.52 Type 2 diabetes mellitus with diabetic peripheral angiopathy with gangrene; R64 Cachexia; E87.1 Hypo-osmolality and hyponatremia; J90 Pleural effusion, not elsewhere classified; E88.09 Other disorders of plasma-protein metabolism, not elsewhere classified; I87.313 Chronic venous hypertension (idiopathic) with ulcer of bilateral lower extremity; I46.9 Cardiac arrest, cause unspecified; L97.419 Non-pressure chronic ulcer of right heel and midfoot with unspecified severity; N18.6 End stage renal disease; E11.22 Type 2 diabetes mellitus with diabetic chronic kidney disease; I13.2 Hypertensive heart and chronic kidney disease with heart failure and with stage 5 chronic kidney disease, or end stage renal disease; I25.10 Atherosclerotic heart disease of native coronary artery without angina pectoris; Z98.61 Coronary angioplasty status; Z68.1 Body mass index [BMI] 19.9 or less, adult; Z20.822 Contact with and (suspected) exposure to COVID-19; K21.9 Gastro-esophageal reflux disease without esophagitis; Z89.432 Acquired absence of left foot; D64.9 Anemia, unspecified; L97.425 Non-pressure chronic ulcer of left heel and midfoot with muscle involvement without evidence of necrosis; Z99.2 Dependence on renal dialysis; Z87.891 Personal history of nicotine dependence; M89.9 Disorder of bone, unspecified; E80.6 Other disorders of bilirubin metabolism; E87.5 Hyperkalemia; J98.11 Atelectasis; D75.839 Thrombocytosis, unspecified; E78.5 Hyperlipidemia, unspecified; S31.30XA Unspecified open wound of scrotum and testes, initial encounter; X58.XXXA Exposure to other specified factors, initial encounter; Y92.9 Unspecified place or not applicable; I49.01 Ventricular fibrillation
CPT/HCPCS: 31720; 36415; 36600; 71045-TC; 80048-TC; 80053-TC; 80061-TC; 80076-TC; 82533; 82803-TC; 82962-TC; 83605-TC; 83690-TC; 83735-TC; 83880; 84100-TC; 84484-TC; 85025-TC; 85730-TC; 87040-TC; 87081-TC; 92950-TC; 93307-TC; 94002-TC; 94799-TC; 99082-TC; A6253; A6403; C9803; G0378; J0171; J0282; J0456; J0692; J0696; J1644; J1720; J1815; J2370; J3370; J3490; J7030; J7040; J7050; J7060; U0003